=== PATIENT | female | born 1925 | race Hispanic/Latino ===

== ENCOUNTER 2016-03-28 10:36 | Emergency (ER) | payer MEDICARE ==
[2016-03-28] MEDS ORDERED: NACL 0.9% 1000 ML 1,000 ML IV ONE (11:20)
--- NOTE | 2016-03-28 12:01 | Cat Scan Report ---
CT scan of head without contrast: History: AMS. Findings: Ventricles are midline in location. Periventricular areas of low attenuation. Focal area of low attenuation right basal ganglia measuring 2 cm in diameter suggestive of chronic ischemia. No evidence of hemorrhage. Moderate volume loss. No extra-axial fluid collection. Normal brainstem and cerebellum. Normal sinuses are mastoid air cells. Impression: Small vessel ischemia. Cortical atrophy. Chronic right basal ganglia lacunar infarct.
--- NOTE | 2016-03-28 12:04 | Cat Scan Report ---
CT scan of cervical spine: History: Fall: AMS injury. Findings: No evidence of fracture of odontoid process, lateral mass, anterior and posterior arch of atlas and occipital condyles. Normal height of vertebral bodies. Decrease in height of intervertebral disc spaces. Sclerotic articular surfaces with peripheral osteophytes suggestive severe cervical spondylosis. Normal prevertebral soft tissue. Impression: Severe cervical spondylosis. No acute fracture.
[2016-03-28 12:40] LABS: Basophils % (Auto) 0.1 % (0.0-1.8); Eosinophils % (Auto) 0.4 % (0.0-4.3); Hematocrit 30.4 % (30.3-42.9); Hemoglobin 10.4 gm/dl (10.1-14.3); Mean Corpuscular HGB Conc 34 % (30-34); Mean Corpuscular Hemoglobin 28 pg (28-32); Mean Corpuscular Volume 82 fl (79-97); Platelet Count 183 K/mm3 (140-440); Red Blood Count 3.72 M/mm3 (3.65-5.03); Red Cell Distribution Width 16.3 % (13.2-15.2); White Blood Count 8.3 K/mm3 (4.5-11.0)
[2016-03-28 12:48] LABS: Albumin 3.6 g/dL (3.9-5); Bilirubin,Direct 0.3 mg/dL (0-0.2); Bilirubin,Indirect 0.5 mg/dL; Bilirubin,Total 0.8 mg/dL (0.1-1.2); Calcium 9.2 mg/dL (8.4-10.2); Magnesium 1.9 mg/dL (1.7-2.3); Potassium 3.3 mmol/L (3.6-5.0); Total Protein 7.2 g/dL (6.3-8.2)
[2016-03-28 12:49] LABS: INR 1.19 (0.87-1.13)
[2016-03-28 12:50] LABS: Partial Thromboplastin Time 31.4 Sec. (24.2-36.6)
--- NOTE | 2016-03-28 12:57 | XRay Report ---
Single view chest: History: Difficulty breathing. Findings: Cardiomegaly. Trachea is midline. Stable pacemaker. Mild COPD. No acute consolidation or pleural effusion. Impression: Cardiomegaly. No acute lung changes.
--- NOTE | 2016-03-28 12:59 | XRay Report ---
Left elbow 3 views: History: Bruising left upper arm. Findings: There is osteopenia. Arthritic changes at the elbow joint. Calcification adjacent to the olecranon process of ulna . No evidence of fracture. Impression: Findings as detailed above.
--- NOTE | 2016-03-28 13:00 | XRay Report ---
Left shoulder 2 views: History: Trauma. Findings: There is fracture noted neck of left humerus with impaction at the site of fracture. No dislocation. Impression: Fracture neck left humerus.
--- NOTE | 2016-03-28 13:13 | Admit Criteria Form ---
Admission Criteria Documentation: MUSCULOSKELETAL DISEASE GRG Clinical Indications for Admission to Inpatient Care (Place 'X' for any and all applicable criteria): Hospital admission is needed for appropriate care of the patient because of ANY ONE of the following: [X]I. Fracture, dislocation, or other musculoskeletal injury requiring inpatient care(medical) as indicated by ANY ONE of the following(4)(5)(6)(7) [ ]a) Vertebral fracture requiring observation for instability or neurologic compromise (8) [ ]b) Compartment syndrome (proven or cannot be ruled out during observation level of care) (9) [ ]c) Limb-threatening injury [ ]d) Major injury requiring inpatient stabilization such as traction initiation or external fixation before internal fixation or closure of complex or open fracture [X]e) Major injury requiring inpatient treatment after emergency or observation level care (as appropriate) [ ]f) Severe pain requiring acute inpatient management [ ]II. Newly diagnosed or suspected bone, joint, or orthopedic device infection (e.g., osteomyelitis, septic arthritis) needing ANY ONE of the following(1)(2)(3) [ ]a) IV antibiotics that cannot be initiated in other than inpatient setting (e.g., patient too unstable or home infusion not available) [ ]b) Device removal or replacement [ ]c) Bone or soft tissue debridement [ ]d) Joint drainage (drain placement or repetitive aspirations) [ ]III. Severe rheumatologic disease (e.g., systemic lupus erythematosus, rheumatoid arthritis) with complications or comorbidities (Also use Optimal Recovery Care Criteria or General Recovery Criteria as appropriate on the basis of predominant condition), including ANY ONE of the following(10 )(11)(12)(13) [ ]a) Severe infection (e.g., CIVILIAN TECHNICIAN infection, sepsis) (14) [ ]b) Respiratory complications, including ANY ONE of the following: [ ]i) Pleural effusion with respiratory compromise [ ]ii) Pulmonary hypertension with congestive failure [ ]iii) Respiratory failure [ ]iv) Pulmonary hemorrhage (15) [ ]c) Hematologic disease, including ANY ONE of the following: [ ]i) Coagulopathy with bleeding [ ]ii) Thrombosis with hypercoagulable state [ ]iii) Thrombotic thrombocytopenic purpura [ ]d) Cerebritis with seizures, psychosis, or other severe abnormalities [ ]e) Vertebral destruction with monitoring needed for cervical myelopathy& possible respiratory compromise [ ]f) Exacerbation that requires inpatient treatment (e.g., intravenous immunosuppression) (16) [ ]g) Acute renal failure [ ]IV. Severe vasculitis with complications or comorbidities (Also use Optimal Recovery Care Criteria or General Recovery Criteria as appropriate on the basis of predominant condition), including ANY ONE of the following(11)(12)(17)(18)(19)(20) [ ]a) CIVILIAN TECHNICIAN vasculitis with seizures, psychosis, or other severe abnormalities (22) [ ]b) Renal failure (16) [ ]c) Pulmonary hemorrhage (15) [ ]d) Cerebral infarction [ ]e) Gastrointestinal ischemia [ ]f) Gangrene or threatened amputation [ ]g) Exacerbation that requires inpatient treatment (e.g., intravenous immunosuppression) (19)(21) [ ]V. Severe myopathy as indicated by ANY ONE of the following (28)(29) [ ]a) New onset of airway compromise or inability to swallow [ ]b) Respiratory deterioration with observation needed for impending respiratory failure [ ]c) Exacerbation that requires inpatient treatment (e.g., intravenous immunosuppression) [ ]. Severe gout (crystal arthropathy) as indicated by ANY ONE of the following (23)(24) [ ]a) Severe pain requiring acute inpatient management [ ]b) Exacerbation that requires inpatient treatment (e.g., intravenous treatment) [ ]VII.Rhabdomyolysis and ANY ONE of the following (25)(26)(27) [ ]a) Acute renal failure [ ]b) Need for intravenous hydration after emergency or observation level care (as appropriate) [ ]c) Inability to maintain oral hydration [ ]d) Change in mental status [ ]e) Electrolyte abnormality that remains after emergency or observation level care (as appropriate) [ ]VIII Post amputation complication, as indicated by ANY ONE of the following [ ]a) Infection [ ]b) Dehiscence [ ]c) Myodesis failure [ ]IX. Severe pain requiring acute inpatient management as indicated by ALL of the following (30)(31)(32) [ ]a) Continuous or frequent (e.g., every 2 to 4 hrs) parenteral analgesics required [A] [ ]b) Rapid improvement expected from treatment or acute intervention ( e.g., surgery, anesthesia procedure[B] [ ]X. Musculoskeletal Disease and ALL of the following: [ ]a) Symptom or finding for which emergency and observation care have failed or are not considered appropriate (Use General Criteria: Observation Care as appropriate) [ ]b) Presence of ANY ONE of the following [ ]i) A General Admission Criteria [ ]ii) A Pediatric General Admission Criteria The original [facility] content created by [facility] has been revised. The portions of the content which have been revised are identified through the use of italic text or in bold, and [facility] has neither reviewed nor approved the modified material. All other unmodified content is copyright [facility]. Please see references footnoted in the original [facility] edition 2016
--- NOTE | 2016-03-28 16:00 | Emergency Department Report ---
ED General Adult HPI - General Chief complaint: Extremity Injury, Upper Stated complaint: DISLOCATED SHOULDER Time Seen by Provider: 03/28/16 11:19 Source: family Mode of arrival: Wheelchair Limitations: Altered Mental Status - History of Present Illness Initial comments: Patient [facility] emergency [facility] a [facility] fracture. Apparently an x-ray was obtained on the of this month. I presume that the report was received [facility] today. Family states that there was no known fall or trauma. 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 She was given Xanax and Percocet today for anxiety and pain. According to the family she is usually more awake. However they attributed her current lethargy to the medications that she has received as she has had similar reaction. In any case as I understand that they sent her from the jail for evaluation of this humeral fracture. -: days(s) Location: left, upper extremity Severity scale (0 -10): 0 Quality: other (unable to obtain) Consistency: constant Improves with: none Worsens with: none (able to obtain) Associated Symptoms: denies other symptoms Treatments Prior to Arrival: none - Related Data Home Medications Medication Instructions Recorded Confirmed Last Taken Hydrochlorothiazide 12.5 mg PO DAILY 09/29/13 03/02/14 09/27/13 10:00 Metoprolol [Lopressor TAB] 50 mg PO DAILY 09/29/13 03/02/14 09/28/13 10:00 Potassium Chloride [Klor-Con 8] 10 meq PO DAILY 09/29/13 03/02/14 09/28/13 10:00 8 ALPRAZolam [Xanax TAB] 0.5 mg PO QHS 03/02/14 03/02/14 Unknown Calcium Carbonate [Calcium] 600 mg PO QDAY 03/02/14 03/02/14 Unknown QUEtiapine [SEROquel] 25 mg PO QDAY 03/02/14 03/02/14 Unknown Previous Rx's Medication Instructions Recorded Last Taken Type oxyCODONE /ACETAMINOPHEN [Percocet 1 tab PO Q6H PRN #30 tablet 10/05/13 Unknown Rx 5/325 mg] Aspirin EC [Aspirin Enteric Coated 81 mg PO QDAY #30 tablet 03/04/14 Unknown Rx TAB] Allergies Allergy/AdvReac Type Severity Reaction Status Date / Time phenytoin sodium Allergy Angioedema Verified 09/29/13 11:31 [From Dilantin] phenytoin sodium extended Allergy Angioedema Verified 09/29/13 11:31 [From Dilantin] ED Review of Systems ROS: Stated complaint: DISLOCATED SHOULDER Other details as noted in HPI Comment: Unobtainable due to pts medical conditions ED Past Medical Hx - Past Medical History Previous Medical History?: Yes Hx Hypertension: Yes Hx Heart Attack/AMI: Yes Hx Arthritis: Yes Hx Dementia: Yes Additional medical history: DNR. heart disease. hyperlipidemia. anxiety. dysphagia - Surgical History Past Surgical History?: Yes Hx Pacemaker: Yes Hx Appendectomy: Yes Additional Surgical History: Craniotomy for brain tumor - Social History Smoking Status: Never Smoker Substance Use Type: None - Medications Home Medications: Home Medications Medication Instructions Recorded Confirmed Last Taken Type Hydrochlorothiazide 12.5 mg PO DAILY 09/29/13 03/02/14 09/27/13 10:00 History Metoprolol [Lopressor TAB] 50 mg PO DAILY 09/29/13 03/02/14 09/28/13 10:00 History Potassium Chloride [Klor-Con 8] 10 meq PO DAILY 09/29/13 03/02/14 09/28/13 10: 00 History 8 oxyCODONE /ACETAMINOPHEN [Percocet 1 tab PO Q6H PRN #30 tablet 10/05/13 Unknown Rx 5/325 mg] ALPRAZolam [Xanax TAB] 0.5 mg PO QHS 03/02/14 03/02/14 Unknown History Calcium Carbonate [Calcium] 600 mg PO QDAY 03/02/14 03/02/14 Unknown History QUEtiapine [SEROquel] 25 mg PO QDAY 03/02/14 03/02/14 Unknown History Aspirin EC [Aspirin Enteric Coated 81 mg PO QDAY #30 tablet 03/04/14 Unknown Rx TAB] ED Physical Exam - General Limitations: Altered Mental Status General appearance: alert, in no apparent distress - Head Head exam: Present: atraumatic, normocephalic - Eye Eye exam: Present: normal appearance - ENT ENT exam: Present: mucous membranes moist - Neck Neck exam: Present: normal inspection - Respiratory Respiratory exam: Present: normal lung sounds bilaterally. Absent: respiratory distress - Cardiovascular Cardiovascular Exam: Present: regular rate, normal rhythm. Absent: systolic murmur, diastolic murmur, rubs, gallop - GI/Abdominal GI/Abdominal exam: Present: soft, normal bowel sounds. Absent: distended, tenderness, guarding, rebound - Extremities Exam Extremities exam: Present: other (ecchymosis and deformity left shoulder closed) - Back Exam Back exam: Present: normal inspection - Neurological Exam Neurological exam: Present: altered (lethargic), other - Psychiatric Psychiatric exam: Present: normal affect, normal mood - Skin Skin exam: Present: warm, dry, intact, normal color. Absent: rash ED Course Vital Signs 03/28/16 03/28/16 03/28/16 10:41 11:29 16:30 Temperature 98.0 F Pulse Rate 91 H 96 H 94 H Respiratory 14 12 16 Rate Blood Pressure 110/69 Blood Pressure 110/75 103/74 [Right] O2 Sat by Pulse 90 98 97 Oximetry - Reevaluation(s) Reevaluation #1: The patient was given IV fluid. She'll be placed in a sling. Her fracture is more displaced than the previous x-ray indicates. However this is a nonsurgical case. Orthopedic follow-up is recommended. 03/28/16 17:06 ED Medical Decision Making - Lab Data Result diagrams: 03/28/16 12:12 03/28/16 12:12 Laboratory Results - last 24 hr 03/28/16 03/28/16 03/28/16 12:12 12:12 12:12 WBC 8.3 RBC 3.72 Hgb 10.4 Hct 30.4 MCV 82 MCH 28 MCHC 34 RDW 16.3 H Plt Count 183 Lymph % (Auto) 13.9 [place] % (Auto) 12.9 H Eos % (Auto) 0.4 Baso % (Auto) 0.1 Lymph # 1.2 [place] # 1.1 H Eos # 0.0 Baso # 0.0 Seg Neutrophils % 72.7 H Seg Neutrophils # 6.1 PT 15.0 H INR 1.19 H APTT 31.4 Sodium 138 Potassium 3.3 L Chloride 99.0 Carbon Dioxide 24 Anion Gap 18 BUN 33 H Creatinine 1.0 Estimated GFR 52 BUN/Creatinine Ratio 33.00 Glucose 107 H Calcium 9.2 Magnesium 1.9 Total Bilirubin 0.8 Direct Bilirubin 0.3 H Indirect Bilirubin 0.5 AST 24 ALT 22 Alkaline Phosphatase 128 Ammonia Troponin T 0.012 Total Protein 7.2 Albumin 3.6 L Albumin/Globulin Ratio 1.0 03/28/16 12:12 WBC RBC Hgb Hct MCV MCH MCHC RDW Plt Count Lymph % (Auto) [place] % (Auto) Eos % (Auto) Baso % (Auto) Lymph # [place] # Eos # Baso # Seg Neutrophils % Seg Neutrophils # PT INR APTT Sodium Potassium Chloride Carbon Dioxide Anion Gap BUN Creatinine Estimated GFR BUN/Creatinine Ratio Glucose Calcium Magnesium Total Bilirubin Direct Bilirubin Indirect Bilirubin AST ALT Alkaline Phosphatase Ammonia 20.0 L Troponin T Total Protein Albumin Albumin/Globulin Ratio Critical care attestation.: If time is entered above; I have spent that time in minutes in the direct care of this critically ill patient, excluding procedure time. ED Disposition Clinical Impression: Prerenal azotemia, Hypokalemia Fracture of neck of left humerus Qualifiers: Encounter type: initial encounter Fracture type: closed Qualified Code(s): S42.212A - Unspecified displaced fracture of surgical neck of left humerus, initial encounter for closed fracture Disposition: DISCHARGED TO HOME OR SELFCARE Is pt being admited?: No Does the pt Need Aspirin: No Condition: Stable Instructions: Dehydration (ED), Hypokalemia (ED), Arm Fracture in Adults (ED) Additional Instructions: Arm sling is the only treatment for this fracture at this point. Continue pain management. I have referred due to an orthopedist. The patient's potassium was 3.3 so it was a bit low. She was a bit somnolent here. However her CT examination of her head showed nothing acute. She also received a CT of her cervical spine which was okay. Her fracture is more displaced now than it was on the . Remain in sling. Follow-up with orthopedics. Increase fluids. If the patient is not taking apple fluids and the patient's family desires a G- tube that might be an option. Referrals: PRIMARY CARE, [Primary Care Provider] - 3-5 Days DENNIS LOPEZ MD [Staff Physician] - 2-3 Days Time of Disposition: 17:15
[2016-03-28 16:48] LABS: Bilirubin,Urine NEG (Negative); Blood,Urine NEG (Negative); Ketones,Urine NEG (Negative); Leukocyte Esterase,Urine NEG (Negative); Mucus,Urine FEW /HPF; Nitrite,Urine NEG (Negative); Protein,Urine <15 mg/dL mg/dL (Negative); RBC,Urine < 1.0 /HPF (0.0-6.0); WBC,Urine < 1.0 /HPF (0.0-6.0)
[2016-03-28] MEDS ORDERED: K-DUR PO ONE ×2 (17:17→17:23)
[2016-03-28 19:34] VITALS: BP 143/90
== END 2016-03-28 19:33 | disposition home or self-care (01) ==
LOC: ED 10:36
DX: S42.212A Unspecified displaced fracture of surgical neck of left humerus, initial encounter for closed fracture (principal); E87.6 Hypokalemia; R79.89 Other specified abnormal findings of blood chemistry; I10 Essential (primary) hypertension; I25.2 Old myocardial infarction; M19.90 Unspecified osteoarthritis, unspecified site; F41.9 Anxiety disorder, unspecified; Z95.0 Presence of cardiac pacemaker; Z79.82 Long term (current) use of aspirin; Z88.8 Allergy status to other drugs, medicaments and biological substances; X58.XXXA Exposure to other specified factors, initial encounter; Y93.89 Activity, other specified; Y99.9 Unspecified external cause status; Y92.89 Other specified places as the place of occurrence of the external cause
CPT/HCPCS: 36415; 51701; 70450; 71010; 72125; 73030; 73070; 80048; 80074; 81001; 82140; 83735; 84484; 85025; 85610; 85730; 93005; 93010; 96360; 96361; 99285; J7030

== ENCOUNTER 2016-06-07 04:14 | Inpatient (IN) | payer MEDICARE ==
[2016-06-07] MEDS ORDERED: NACL 0.9% 1000 ML 1,000 ML IV ONE (05:26)
[2016-06-07 06:08] LABS: Basophils % (Auto) 0.1 % (0.0-1.8); Eosinophils % (Auto) 1.5 % (0.0-4.3); Hematocrit 37.3 % (30.3-42.9); Hemoglobin 11.9 gm/dl (10.1-14.3); Mean Corpuscular HGB Conc 32 % (30-34); Mean Corpuscular Volume 79 fl (79-97); Platelet Count 224 K/mm3 (140-440); Red Blood Count 4.73 M/mm3 (3.65-5.03); Red Cell Distribution Width 16.8 % (13.2-15.2)
[2016-06-07 06:10] LABS: Mean Corpuscular Hemoglobin 25 pg (28-32)
[2016-06-07 06:23] LABS: Bilirubin,Total 0.6 mg/dL (0.1-1.2); Calcium 10.2 mg/dL (8.4-10.2); Chloride 100.2 mmol/L (98-107); Potassium 3.6 mmol/L (3.6-5.0)
[2016-06-07 06:26] LABS: INR 1.07 (0.87-1.13); Partial Thromboplastin Time 28.4 Sec. (24.2-36.6)
[2016-06-07] MEDS ORDERED: PROTONIX IV ONE (06:58)
--- NOTE | 2016-06-07 06:59 | Emergency Department Report ---
ED GI Bleed HPI - General Chief complaint: GI Bleed Stated complaint: VOMITING Time Seen by Provider: 06/07/16 06:38 Source: family, EMS (ems notes not available at time of chart dictation), old records reviewed Mode of arrival: Stretcher Limitations: Altered Mental Status, Physical Limitation - History of Present Illness Initial comments: This is an 89-year-old female. She is previously unknown to me. The patient presents to the ER from local longterm, her primary care physician is Dr. Gerald Girard. Patient is demented, history of DO NOT RESUSCITATE, DO NOT INTUBATE. Past medical history includes advanced dementia. History also includes dysphasia, hypertension, myocardial infarction, high cholesterol. Her career development coordinator is Dr. Joshua Adan History is obtained by speaking to her 2 daughters Yennifer Ly; [phone] Ava Jones; [phone] The patient is brought to the hospital by EMS for vomiting of coffee-ground emesis. The patient is alert and oriented 1, and denies complaints. Family thinks that she is up-to-date with vaccinations. Family reports that the patient had a mechanical fall over the weekend, and has right periorbital ecchymosis. They further report that the patient received x-rays at the facility which were negative. Family indicates that their goals of care are for comfort, patient is DO NOT RESUSCITATE, DO NOT INTUBATE. The family is amenable to hospital admission, IV fluids, packed red blood cells. They are ambivalent about upper endoscopy at this time. MD complaint: coffee ground emesis -: Gradual Quality: painless Improves with: other (patient is essentially nonverbal, cannot describe exacerbating factors or relieving factors) Worsens with: other (as per history of present illness) Context: other (as per hpi) Associated Symptoms: other (patient nonverbal, history obtained entirely from speaking to family. Patient groans when examined.) - Related Data Home Medications Medication Instructions Recorded Confirmed Last Taken Hydrochlorothiazide 12.5 mg PO DAILY 09/29/13 06/07/16 06/06/16 Metoprolol [Lopressor TAB] 50 mg PO DAILY 09/29/13 06/07/16 06/06/16 Potassium Chloride [Klor-Con 8] 10 meq PO DAILY 09/29/13 06/07/16 06/06/16 ALPRAZolam [Xanax TAB] 0.5 mg PO QHS 03/02/14 06/07/16 06/06/16 Calcium Carbonate [Calcium] 600 mg PO QDAY 03/02/14 06/07/16 06/06/16 QUEtiapine [SEROquel] 25 mg PO QDAY 03/02/14 06/07/16 06/06/16 Previous Rx's Medication Instructions Recorded Last Taken Type oxyCODONE /ACETAMINOPHEN [Percocet 1 tab PO Q6H PRN #30 tablet 10/05/13 Unknown Rx 5/325 mg] Aspirin EC [Aspirin Enteric Coated 81 mg PO QDAY #30 tablet 03/04/14 06/06/16 Rx TAB] Allergies Allergy/AdvReac Type Severity Reaction Status Date / Time phenytoin sodium Allergy Angioedema Verified 09/29/13 11:31 [From Dilantin] phenytoin sodium extended Allergy Angioedema Verified 09/29/13 11:31 [From Dilantin] ED Review of Systems ROS: Stated complaint: VOMITING Other details as noted in HPI Comment: Unobtainable due to pts medical conditions Gastrointestinal: hematemesis ED Past Medical Hx - Past Medical History Hx Hypertension: Yes Hx Heart Attack/AMI: Yes Hx Arthritis: Yes Hx Dementia: Yes Additional medical history: DNR. heart disease. hyperlipidemia. anxiety. dysphagia - Surgical History Hx Pacemaker: Yes Hx Appendectomy: Yes Additional Surgical History: Craniotomy for brain tumor - Social History Smoking Status: Never Smoker - Medications Home Medications: Home Medications Medication Instructions Recorded Confirmed Last Taken Type Hydrochlorothiazide 12.5 mg PO DAILY 09/29/13 06/07/16 06/06/16 History Metoprolol [Lopressor TAB] 50 mg PO DAILY 09/29/13 06/07/16 06/06/16 History Potassium Chloride [Klor-Con 8] 10 meq PO DAILY 09/29/13 06/07/16 06/06/16 History oxyCODONE /ACETAMINOPHEN [Percocet 1 tab PO Q6H PRN #30 tablet 10/05/13 Unknown Rx 5/325 mg] ALPRAZolam [Xanax TAB] 0.5 mg PO QHS 03/02/14 06/07/16 06/06/16 History Calcium Carbonate [Calcium] 600 mg PO QDAY 03/02/14 06/07/16 06/06/16 History QUEtiapine [SEROquel] 25 mg PO QDAY 03/02/14 06/07/16 06/06/16 History Aspirin EC [Aspirin Enteric Coated 81 mg PO QDAY #30 tablet 03/04/14 06/07/16 Rx TAB] ED Physical Exam - General Limitations: Altered Mental Status, Physical Limitation General appearance: in no apparent distress - Head Head exam: Present: normocephalic, other (there is right periorbital ecchymosis) - Eye Eye exam: Present: other (there is right periorbital ecchymosis. The patient keeps her right eye closed, and will not open it. family does not want me to open up the eye) - ENT ENT exam: Present: normal exam, normal external ear exam - Neck Neck exam: Present: normal inspection. Absent: tenderness, meningismus - Respiratory Respiratory exam: Present: normal lung sounds bilaterally. Absent: respiratory distress, wheezes, rales, rhonchi, stridor, chest wall tenderness, accessory muscle use, decreased breath sounds - Cardiovascular Cardiovascular Exam: Present: regular rate, normal rhythm, normal heart sounds. Absent: bradycardia, tachycardia, irregular rhythm, systolic murmur, diastolic murmur, rubs, gallop - GI/Abdominal GI/Abdominal exam: Present: soft, normal bowel sounds. Absent: distended, tenderness, guarding, rebound, rigid, pulsatile mass - Rectal Rectal exam: Present: normal inspection, heme (-) stool, other (escorted by ART Soliman) - Extremities Exam Extremities exam: Present: normal inspection, full ROM, normal capillary refill. Absent: pedal edema, joint swelling, calf tenderness - Back Exam Back exam: Present: normal inspection. Absent: tenderness, CVA tenderness (R) - Neurological Exam Neurological exam: Present: altered (as per family, patient had normal mental status.), other (she moves 4 extremities. She is demented. She groans when examined.) - Skin Skin exam: Present: ecchymosis. Absent: rash ED Course Vital Signs 06/07/16 06/07/16 06/07/16 04:32 05:01 05:31 Temperature Pulse Rate 92 H 96 H 92 H Respiratory 12 19 Rate Blood Pressure 155/86 155/86 Blood Pressure [Left] O2 Sat by Pulse 62 L 96 Oximetry 06/07/16 06/07/16 06/07/16 06:01 06:31 06:40 Temperature Pulse Rate 93 H 97 H Respiratory 17 17 18 Rate Blood Pressure 155/86 155/86 Blood Pressure [Left] O2 Sat by Pulse 97 96 98 Oximetry 06/07/16 06/07/16 06/07/16 07:01 07:20 07:31 Temperature 98.8 F Pulse Rate 102 H 91 H Respiratory 19 14 Rate Blood Pressure 155/86 155/86 Blood Pressure [Left] O2 Sat by Pulse 96 90 Oximetry 06/07/16 06/07/16 06/07/16 08:11 08:19 08:31 Temperature 98.8 F Pulse Rate 91 H Respiratory 13 Rate Blood Pressure Blood Pressure [Left] O2 Sat by Pulse 94 98 Oximetry 06/07/16 06/07/16 06/07/16 09:01 09:31 10:01 Temperature Pulse Rate 87 97 H 95 H Respiratory 19 13 17 Rate Blood Pressure Blood Pressure [Left] O2 Sat by Pulse 98 93 81 L Oximetry 06/07/16 06/07/16 06/07/16 10:31 11:06 11:16 Temperature Pulse Rate 88 82 88 Respiratory 13 20 Rate Blood Pressure 150/80 Blood Pressure 150/82 [Left] O2 Sat by Pulse 98 Oximetry - Reevaluation(s) Reevaluation #1: 06/07/16 08:06 Differential diagnosis: Pneumonia, urinary tract infection, upper GI bleed, intracranial injury, facial contusion/ecchymosis Assessment and plan: 89-year-old female who is demented, unable to offer collateral history, DO NOT RESUSCITATE, DO NOT INTUBATE with undifferentiated coffee-ground emesis. She is afebrile with reassuring vital signs. She is guaiac negative. Hemoglobin and hematocrit appropriate, do not require packed red blood cell transfusion. Elevated blood urea nitrogen suggestive of upper GI bleed. IV fluids and Protonix ordered. Gastroenterology page. Noncontrast CAT scan of the brain is ordered to exclude intracranial injury. X-ray chest interpretation is appreciated, given patient's advanced age, and stated goals of care from the family, I will defer to the inpatient team to further evaluate this. Case is discussed with the Hospital physician, Dr. Girard, who accepts the patient to his service. Family is amenable to Protonix, IV fluids and packed red blood cell transfusion. - Consultations Consultation #1: 06/07/16 08:49 Case is discussed with gastroenterology, Dr. Teran, his group will see the patient as a consult. ED Medical Decision Making - Lab Data Result diagrams: 06/07/16 05:30 06/07/16 05:30 Vital Signs 06/07/16 06/07/16 06/07/16 04:32 05:01 06:40 Pulse Rate 92 H 96 H Respiratory 12 18 Rate Blood Pressure 155/86 O2 Sat by Pulse 62 L 98 Oximetry Lab Results 06/07/16 06/07/16 06/07/16 Range/Units 05:30 05:30 05:30 WBC 8.0 (4.5-11.0) K/mm3 RBC 4.73 (3.65-5.03) M/mm3 Hgb 11.9 (10.1-14.3) gm/dl Hct 37.3 (30.3-42.9) % MCV 79 (79-97) fl MCH 25 L (28-32) pg MCHC 32 (30-34) % RDW 16.8 H (13.2-15.2) % Plt Count 224 (140-440) K/mm3 Lymph % (Auto) 16.8 (13.4-35.0) % [place] % (Auto) 7.3 (0.0-7.3) % Eos % (Auto) 1.5 (0.0-4.3) % Baso % (Auto) 0.1 (0.0-1.8) % Lymph # 1.3 (1.2-5.4) K/mm3 [place] # 0.6 (0.0-0.8) K/mm3 Eos # 0.1 (0.0-0.4) K/mm3 Baso # 0.0 (0.0-0.1) K/mm3 Seg Neutrophils % 74.3 H (40.0-70.0) % Seg Neutrophils # 6.0 (1.8-7.7) K/mm3 PT 13.8 (12.2-14.9) Sec. INR 1.07 (0.87-1.13) APTT 28.4 (24.2-36.6) Sec. Sodium 145 (137-145) mmol/L Potassium 3.6 (3.6-5.0) mmol/L Chloride 100.2 (98-107) mmol/L Carbon Dioxide 28 (22-30) mmol/L Anion Gap 20 mmol/L BUN 38 H (7-17) mg/dL Creatinine 1.0 (0.7-1.2) mg/dL Estimated GFR 52 ml/min BUN/Creatinine Ratio 38.00 % Glucose 120 H (65-100) mg/dL Calcium 10.2 (8.4-10.2) mg/dL Total Bilirubin 0.6 (0.1-1.2) mg/dL AST 28 (5-40) units/L ALT 20 (7-56) units/L Alkaline Phosphatase 180 H (35-129) units/L Total Protein 8.0 (6.3-8.2) g/dL Albumin 4.0 (3.9-5) g/dL Albumin/Globulin Ratio 1.0 % Lipase 23 (13-60) units/L Blood Type Antibody Screen ALEKSEY Antibody Screen 06/07/16 Range/Units 05:30 WBC (4.5-11.0) K/mm3 RBC (3.65-5.03) M/mm3 Hgb (10.1-14.3) gm/dl Hct (30.3-42.9) % MCV (79-97) fl MCH (28-32) pg MCHC (30-34) % RDW (13.2-15.2) % Plt Count (140-440) K/mm3 Lymph % (Auto) (13.4-35.0) % [place] % (Auto) (0.0-7.3) % Eos % (Auto) (0.0-4.3) % Baso % (Auto) (0.0-1.8) % Lymph # (1.2-5.4) K/mm3 [place] # (0.0-0.8) K/mm3 Eos # (0.0-0.4) K/mm3 Baso # (0.0-0.1) K/mm3 Seg Neutrophils % (40.0-70.0) % Seg Neutrophils # (1.8-7.7) K/mm3 PT (12.2-14.9) Sec. INR (0.87-1.13) APTT (24.2-36.6) Sec. Sodium (137-145) mmol/L Potassium (3.6-5.0) mmol/L Chloride (98-107) mmol/L Carbon Dioxide (22-30) mmol/L Anion Gap mmol/L BUN (7-17) mg/dL Creatinine (0.7-1.2) mg/dL Estimated GFR ml/min BUN/Creatinine Ratio % Glucose (65-100) mg/dL Calcium (8.4-10.2) mg/dL Total Bilirubin (0.1-1.2) mg/dL AST (5-40) units/L ALT (7-56) units/L Alkaline Phosphatase (35-129) units/L Total Protein (6.3-8.2) g/dL Albumin (3.9-5) g/dL Albumin/Globulin Ratio % Lipase (13-60) units/L Blood Type O NEGATIVE Antibody Screen TNR ALEKSEY Antibody Screen Negative - EKG Data -: EKG Interpreted by Dc - EKG Data 06/07/16 08:08 Sinus tachycardia, 101 bpm, premature ventricular contraction, left ventricular hypertrophy, QTC 479 ms, T wave inversion V2, V3, V4, V5 and V6. When compared to prior EKG from March 2016, anteroseptal T-wave inversions in V2 and V3 appear to be new. - Radiology Data Radiology results: report reviewed, image reviewed X-ray of the chest is rotated, elevated hemidiaphragm, left sided cardiac device , limited, possible hiatal hernia. Critical care attestation.: If time is entered above; I have spent that time in minutes in the direct care of this critically ill patient, excluding procedure time. ED Disposition Clinical Impression: Coffee ground emesis Disposition: OP ADMITTED IP TO THIS HOSP Is pt being admited?: Yes Condition: Fair
--- NOTE | 2016-06-07 07:04 | Admit Criteria Form ---
Admission Criteria Documentation: GASTROINTESTINAL BLEEDING, UPPER Clinical Indications for Admission to Inpatient Care ( Place 'X' for any and all applicable criteria): Admission is indicated for ANY ONE of the following(1)(2)(3)(4)(5)(6): [ ]I. Active bleeding (eg, fresh voluminous blood in emesis or nasogastric aspirate) [ ]II. Associated conditions requiring hospitalization (eg, perforation, obstruction from ulcer) [X]III. Inpatient admission required rather than observation care (Also use Gastrointestinal Bleeding, Upper: Observation Care as appropriate) because of ANY ONE of the following: [ ]a) Hemodynamic instability that is severe or persistent [ ]b) Anemia requiring inpatient admission as indicated by ALL of the following: [ ]1) Presence of significant clinical finding indicated by ANY ONE of the following: [ ]A. Tachycardia for age [ ]B. Orthostatic vital sign changes [ ]C. Cognitive impairment [ ]D. Heart failure [ ]E. Chest pain [ ]F. Exertional dyspnea [ ]G. Other findings suggesting inadequate perfusion (eg, peripheral or myocardial ischemia, end organ dysfunction) [ ]2) Initial (eg, emergency department, observation care) treatment with transfusion or volume replacement is judged inappropriate (due to severity of the finding) or has been ineffective [ ]c) Severe pain requiring acute inpatient management [ ]d) High-risk low platelet count [ ]e) IV fluid to replace significant ongoing losses (greater than 3 L/m2 per day) [ ]f) Immediate inpatient surgery [X]g) Other condition, treatment or monitoring requiring inpatient admission [ ]IV. Severe liver disease (eg, cirrhosis) [ ]V. Significant active comorbid disease [ ]. Anticoagulation therapy [ ]VII. High-risk endoscopic features (arterial bleeding, adherent clot, nonbleeding visible vessel, varices, flat red spots, ulcer size greater than 2 cm, or portal hypertensive gastropathy) [ ]VIII. Previous aortic graft placement or known aortic aneurysm [ ]IX. Coagulopathy [ ]X. Syncope Extended stay beyond goal length of stay may be needed for(1)(2): [ ]a) Emergency surgery [ ]b) Varices [ ]c) Coagulation abnormalities [ ]d) Recurrent, obscure, or persistent bleeding or continued Hemodynamic instability [ ]e) Associated conditions requiring surgery (eg, perforated gastric ulcer, gastric outlet obstruction) [ ]f) Active comorbidities (eg, renal insufficiency, heart failure, pre- existing liver disease) The original [facility] [employer] content created by [facility] has been revised. The portions of the content which have been revised are identified through the use of italic text or in bold, and [facility] has neither reviewed nor approved the modified material. All other unmodified content is copyright [facility] [employer]. Please see references footnoted in the original [facility] [employer] edition 2016 Admission Criteria Met: Yes
--- NOTE | 2016-06-07 07:50 | XRay Report ---
AP CHEST History: Nausea and vomiting, GI bleeding. Findings: Limited exam. The cardiac silhouette and left hemidiaphragm appear abnormal which is a new finding since 03/28/16. This may represent a large hiatal hernia behind the heart or possibly an elevated left hemidiaphragm. The left upper lung and right lung are generally clear. Heart size is at the upper limits of normal. Pacemaker device is unchanged. The bony structures are severely demineralized with chronic deformities of both humeral heads. Impression: Limited exam but abnormal AP chest when compared to 03/28/16. Large hiatal hernia? Elevated left hemidiaphragm? Consider further imaging with CT or 2 views of the chest
[2016-06-07 08:50] LABS: Bacteria,Urine 2+ /HPF (Negative); Bilirubin,Urine NEG (Negative); Blood,Urine NEG (Negative); Ketones,Urine NEG (Negative); Leukocyte Esterase,Urine MOD (Negative); Nitrite,Urine NEG (Negative); Protein,Urine <15 mg/dL mg/dL (Negative)
--- NOTE | 2016-06-07 08:54 | Cat Scan Report ---
Cranial CT without contrast. History: Head trauma with pain. Findings: Comparison is made to the previous study on March 28, 2016. There is no evidence of acute hemorrhage or infarct. Multiple senescent/chronic changes are stable since the previous study. No masses or extra-axial collections are seen. A metallic foreign body is again noted in the left middle cranial fossa. Postoperative changes in the left calvarium are noted. No new calvarial abnormalities are seen. Impression: No acute findings or interval changes since March 28, 2016.
[2016-06-07] MEDS ORDERED: ROCEPHIN/NS 1 GM/50 ML 1 GM/50 ML BAG IV ONE (09:06)
--- NOTE | 2016-06-07 10:09 | History and Physical Report ---
History of Present Illness Date of examination: 06/07/16 History of present illness: Patient is an 89-year-old female presents to the ER from local alf, her primary care physician is myself. Patient is demented, history of DO NOT RESUSCITATE, DO NOT INTUBATE. Patient's past medical history includes advanced dementia, dysphasia, hypertension, myocardial infarction, high cholesterol. History is obtained by speaking to her 2 daughters. The patient is brought to the hospital by EMS for vomiting of coffee-ground emesis. The patient is alert and oriented 1, and denies complaints. Family thinks that she is up-to-date with vaccinations. Family reports that the patient had a mechanical fall over the weekend, and has right periorbital ecchymosis. They further report that the patient received x-rays at the facility which were negative. Family indicates that their goals of care are for comfort, patient is DO NOT RESUSCITATE, DO NOT INTUBATE. The family is amenable to hospital admission, IV fluids, packed red blood cells. They are ambivalent about upper endoscopy at this time. Past History Past Medical History: hypertension, other (anxiety) Medications and Allergies Allergies Allergy/AdvReac Type Severity Reaction Status Date / Time phenytoin sodium Allergy Angioedema Verified 09/29/13 11:31 [From Dilantin] phenytoin sodium extended Allergy Angioedema Verified 09/29/13 11:31 [From Dilantin] Home Medications Medication Instructions Recorded Confirmed Last Taken Type Hydrochlorothiazide 12.5 mg PO DAILY 09/29/13 06/07/16 06/06/16 History Metoprolol [Lopressor TAB] 50 mg PO DAILY 09/29/13 06/07/16 06/06/16 History Potassium Chloride [Klor-Con 8] 10 meq PO DAILY 09/29/13 06/07/16 06/06/16 History oxyCODONE /ACETAMINOPHEN [Percocet 1 tab PO Q6H PRN #30 tablet 10/05/13 Unknown Rx 5/325 mg] ALPRAZolam [Xanax TAB] 0.5 mg PO QHS 03/02/14 06/07/16 06/06/16 History Calcium Carbonate [Calcium] 600 mg PO QDAY 03/02/14 06/07/16 06/06/16 History QUEtiapine [SEROquel] 25 mg PO QDAY 03/02/14 06/07/16 06/06/16 History Aspirin EC [Aspirin Enteric Coated 81 mg PO QDAY #30 tablet 03/04/14 06/07/16 Rx TAB] Review of Systems Gastrointestinal: nausea, vomiting, coffee ground emesis Exam - Constitutional Vitals: Temp Pulse Resp BP Pulse Ox 98.8 F 97 H 13 155/86 93 06/07/16 08:11 06/07/16 09:31 06/07/16 09:31 06/07/16 07:31 06/07/16 09:31 General appearance: Present: no acute distress - EENT Eyes: Present: PERRL, EOM intact ENT: hearing intact, clear oral mucosa - Neck Neck: Present: supple, normal ROM - Respiratory Respiratory effort: normal Respiratory: bilateral: CTA - Cardiovascular Rhythm: regular Heart Sounds: Present: S1 & S2 - Extremities Extremities: no ischemia, No edema - Abdominal General gastrointestinal: Present: soft, non-tender, non-distended, normal bowel sounds - Psychiatric Psychiatric: appropriate mood/affect, intact judgment & insight - Neurologic Neurologic: CNII-XII intact, moves all extremities Results - Labs CBC & Chem 7: 06/07/16 05:30 06/07/16 05:30 Labs: Laboratory Last Values WBC 8.0 K/mm3 (4.5-11.0) 06/07/16 05:30 RBC 4.73 M/mm3 (3.65-5.03) 06/07/16 05:30 Hgb 11.9 gm/dl (10.1-14.3) 06/07/16 05:30 Hct 37.3 % (30.3-42.9) 06/07/16 05:30 MCV 79 fl (79-97) 06/07/16 05:30 MCH 25 pg (28-32) L 06/07/16 05:30 MCHC 32 % (30-34) 06/07/16 05:30 RDW 16.8 % (13.2-15.2) H 06/07/16 05:30 Plt Count 224 K/mm3 (140-440) 06/07/16 05:30 Lymph % (Auto) 16.8 % (13.4-35.0) 06/07/16 05:30 [place] % (Auto) 7.3 % (0.0-7.3) 06/07/16 05:30 Eos % (Auto) 1.5 % (0.0-4.3) 06/07/16 05:30 Baso % (Auto) 0.1 % (0.0-1.8) 06/07/16 05:30 Lymph # 1.3 K/mm3 (1.2-5.4) 06/07/16 05:30 [place] # 0.6 K/mm3 (0.0-0.8) 06/07/16 05:30 Eos # 0.1 K/mm3 (0.0-0.4) 06/07/16 05:30 Baso # 0.0 K/mm3 (0.0-0.1) 06/07/16 05:30 Seg Neutrophils % 74.3 % (40.0-70.0) H 06/07/16 05:30 Seg Neutrophils # 6.0 K/mm3 (1.8-7.7) 06/07/16 05:30 PT 13.8 Sec. (12.2-14.9) 06/07/16 05:30 INR 1.07 (0.87-1.13) 06/07/16 05:30 APTT 28.4 Sec. (24.2-36.6) 06/07/16 05:30 Sodium 145 mmol/L (137-145) 06/07/16 05:30 Potassium 3.6 mmol/L (3.6-5.0) 06/07/16 05:30 Chloride 100.2 mmol/L (98-107) 06/07/16 05:30 Carbon Dioxide 28 mmol/L (22-30) 06/07/16 05:30 Anion Gap 20 mmol/L 06/07/16 05:30 BUN 38 mg/dL (7-17) H 06/07/16 05:30 Creatinine 1.0 mg/dL (0.7-1.2) 06/07/16 05:30 Estimated GFR 52 ml/min 06/07/16 05:30 BUN/Creatinine Ratio 38.00 % 06/07/16 05:30 Glucose 120 mg/dL (65-100) H 06/07/16 05:30 Calcium 10.2 mg/dL (8.4-10.2) 06/07/16 05:30 Total Bilirubin 0.6 mg/dL (0.1-1.2) 06/07/16 05:30 AST 28 units/L (5-40) 06/07/16 05:30 ALT 20 units/L (7-56) 06/07/16 05:30 Alkaline Phosphatase 180 units/L (35-129) H 06/07/16 05:30 Total Protein 8.0 g/dL (6.3-8.2) 06/07/16 05:30 Albumin 4.0 g/dL (3.9-5) 06/07/16 05:30 Albumin/Globulin Ratio 1.0 % 06/07/16 05:30 Lipase 23 units/L (13-60) 06/07/16 05:30 Urine Color Yellow (Yellow) 06/07/16 07:39 Urine Turbidity Clear (Clear) 06/07/16 07:39 Urine pH 7.0 (5.0-7.0) 06/07/16 07:39 Ur Specific [place] 1.015 (1.003-1.030) 06/07/16 07:39 Urine Protein <15 mg/dl mg/dL (Negative) 06/07/16 07:39 Urine Glucose (UA) Neg mg/dL (Negative) 06/07/16 07:39 Urine Ketones Neg mg/dL (Negative) 06/07/16 07:39 Urine Blood Neg (Negative) 06/07/16 07:39 Urine Nitrite Neg (Negative) 06/07/16 07:39 Urine Bilirubin Neg (Negative) 06/07/16 07:39 Urine Urobilinogen 2.0 mg/dL (<2.0) 06/07/16 07:39 Ur Leukocyte Esterase Mod (Negative) 06/07/16 07:39 Urine WBC (Auto) 34.0 /HPF (0.0-6.0) H 06/07/16 07:39 Urine RBC (Auto) 5.0 /HPF (0.0-6.0) 06/07/16 07:39 U Epithel Cells (Auto) < 1.0 /HPF (0-13.0) 06/07/16 07:39 Urine Bacteria (Auto) 2+ /HPF (Negative) 06/07/16 07:39 Blood Type O NEGATIVE 06/07/16 05:30 Antibody Screen TNR 06/07/16 05:30 ALEKSEY Antibody Screen Negative 06/07/16 05:30 Assessment and Plan - Patient Problems (1) GI bleed Current Visit: Yes Status: Acute Qualifiers: GI bleed type/associated pathology: G Gastritis type: G Plan to address problem: Patient history of coffee-ground emesis at the alf. We'll get GI consultation. We will follow CBC and transfuse as needed. Family has expressed that the only walk offering care measures and will decide about EGD/ colonoscopy (2) Coffee ground emesis Current Visit: Yes Status: Acute Plan to address problem: Start IV Protonix
[2016-06-07] MEDS ORDERED: PERCOCET 5/325 PO PRN (10:17)
[2016-06-07] MEDS ORDERED: DULCOLAX PR PRN (10:20)
[2016-06-07] MEDS ORDERED: TYLENOL PO PRN (10:20)
[2016-06-07] MEDS ORDERED: ZOFRAN IV PRN (10:20)
[2016-06-07] MEDS ORDERED: MILK OF MAGNESIA PO PRN (10:20)
[2016-06-07] MEDS ORDERED: NON-FORMULARY (Calcium Carbonate [Calcium] 600 MG) PO SCH (10:30)
[2016-06-07] MEDS ORDERED: LOPRESSOR ONE (10:51)
[2016-06-07] MEDS ORDERED: PROTONIX PO ONE (10:54)
[2016-06-07] MEDS ORDERED: HCTZ ONE (10:55)
[2016-06-07] MEDS ORDERED: KLOR-CON 8 PO SCH (11:00)
[2016-06-07] MEDS ORDERED: NACL 0.9% 1000 ML 1,000 ML IV SCH (11:00)
[2016-06-07] MEDS: LOPRESSOR PO SCH (11:06)
[2016-06-07] MEDS: HCTZ PO SCH (11:06)
[2016-06-07] MEDS: PROTONIX IV SCH (11:07)
[2016-06-07] MEDS: K-DUR PO SCH (12:45)
[2016-06-07 12:56] LABS: Mucus,Urine FEW /HPF
--- NOTE | 2016-06-07 17:05 | Event Note ---
Date: 06/07/16 - full consult dictated - no plans to scope at this time - ok to d/c in am if stable
[2016-06-07] MEDS ORDERED: XANAX PO SCH (22:00)
--- NOTE | 2016-06-08 01:04 | Consultation ---
REFERRING PHYSICIAN: Gerald Girard M.D. INDICATION: GI bleed. HISTORY OF PRESENT ILLNESS: The patient is an 89-year-old white female who lives in a fdc. The patient has a past medical history including dementia, hypertension, coronary artery disease, status post OK, high cholesterol. The patient is a do not resuscitate. The patient reportedly was having some nausea, vomiting, and then started having some question of coffee-ground emesis. The patient subsequently was transferred to the Emergency Room for further evaluation. Denies melena. Denies any bright red blood emesis. Since being seen in the Emergency Room last night, the patient has had no further bouts of nausea, vomiting, emesis. No other specific complaints. PAST MEDICAL HISTORY: 1. Hypertension. 2. Dysphagia. 3. Dementia. 4. Coronary artery disease, status post OK. 5. High cholesterol. MEDICATIONS: See chart. ALLERGIES: No known drug allergies. SOCIAL HISTORY: Lives in a fdc. FAMILY HISTORY: Noncontributory. REVIEW OF SYSTEMS: GENERAL: Reports mild weakness. HEENT: No visual complaints or tinnitus. PULMONARY: No shortness of breath. CARDIOVASCULAR: No chest pain. GASTROINTESTINAL: Reports question of coffee emesis. All points of 13-point review of systems otherwise negative. PHYSICAL EXAMINATION: VITAL SIGNS: Temperature of 98.0, pulse 65, respirations 20, blood pressure . GENERAL: Fairly thin female, in no acute distress. HEENT: Pupils equal, round, reactive. PULMONARY: Clear to auscultation bilaterally. CARDIOVASCULAR: Regular rate and rhythm. Normal S1, S2. ABDOMEN: Positive bowel sounds, soft. SKIN: No obvious rashes. LABORATORY DATA: Pertinent for white count of 8.0, hemoglobin and hematocrit of 11.9 and 37.3, platelet count 224. Chem-7 within normal limits. Coags within normal limits. ASSESSMENT AND PLAN: An 89-year-old white female with past medical history as noted above, now with a question of coffee emesis. I have had a long discussion with the patient's daughter who is adamant that she does not want her mother to undergo any procedures unless an emergent. The patient is otherwise stable with no significant GI problems or complaints. PLAN: 1. PPI daily. 2. Follow hematocrit and transfuse as needed. 3. Avoid NSAIDs and aspirin. 4. If H and H stable in a.m., okay to discharge from GI standpoint. 5. Further recommendation based on progress. JOB# [id number] CAB/NTS
[2016-06-08 04:39] LABS: Basophils % (Auto) 0.2 % (0.0-1.8); Eosinophils % (Auto) 8.4 % (0.0-4.3); Hematocrit 33.4 % (30.3-42.9); Hemoglobin 10.9 gm/dl (10.1-14.3); Mean Corpuscular HGB Conc 33 % (30-34); Mean Corpuscular Volume 78 fl (79-97); Platelet Count 212 K/mm3 (140-440); Red Cell Distribution Width 16.8 % (13.2-15.2); White Blood Count 5.5 K/mm3 (4.5-11.0)
[2016-06-08 04:48] LABS: Mean Corpuscular Hemoglobin 25 pg (28-32)
[2016-06-08 04:53] LABS: Albumin 3.4 g/dL (3.9-5); BUN/Creatinine Ratio 33.33; Bilirubin,Total 0.6 mg/dL (0.1-1.2); Calcium 9.2 mg/dL (8.4-10.2); Chloride 103.5 mmol/L (98-107); Potassium 3.6 mmol/L (3.6-5.0); Total Protein 6.7 g/dL (6.3-8.2)
--- NOTE | 2016-06-08 08:46 | Discharge Summary ---
Providers - Providers Date of Admission: 06/07/16 10:20 Date of discharge: 06/08/16 Attending physician: DIO PEDRAZA Primary care physician: MANAGER [employer] Hospitalization Condition: Fair Hospital course: Patient is an 89-year-old female presents to the ER from local [facility], her primary care physician is myself. Patient is demented, history of DO NOT RESUSCITATE, DO NOT INTUBATE. Patient's past medical history includes advanced dementia, dysphasia, hypertension, myocardial infarction, high cholesterol. History is obtained by speaking to her 2 daughters. The patient is brought to the hospital by EMS for vomiting of coffee-ground emesis. The patient is alert and oriented 1, and denies complaints. Family thinks that she is up-to-date with vaccinations. Family reports that the patient had a mechanical fall over the weekend, and has right periorbital ecchymosis. They further report that the patient received x-rays at the facility which were negative. Family indicates that their goals of care are for comfort, patient is DO NOT RESUSCITATE, DO NOT INTUBATE. The family is amenable to hospital admission, IV fluids, packed red blood cells. They are ambivalent about upper endoscopy at this time. Patient was admitted to the hospital for coffee ground emesis but her hemoglobin and hematocrit remained stable during hospital stay and patient had no signs of active bleeding. Patient was evaluated by GI and GI felt that patient was not a candidate for invasive GI procedures. Family only wanted comforting care measures. So patient returned back to her baseline because she is known by myself from the rehabilitation facility. Patient will be discharged back to [facility] in stable condition. Disposition: DC/TX SNF W [facility] CERT - Discharge Diagnoses (1) GI bleed Status: Acute Qualifiers: GI bleed type/associated pathology: G Gastritis type: G (2) Coffee ground emesis Status: Acute Core Measure Documentation - Palliative Care Palliative Care/ Comfort Measures: Not Applicable - Core Measures Any of the following diagnoses?: none Exam - Constitutional Vitals: Temp Pulse Resp BP Pulse Ox 98.0 F 77 16 160/83 95 06/07/16 12:31 06/07/16 22:00 06/07/16 12:57 06/07/16 12:31 06/08/16 08:40 General appearance: Present: no acute distress - EENT Eyes: Present: PERRL, EOM intact ENT: hearing intact, clear oral mucosa - Neck Neck: Present: supple, normal ROM - Respiratory Respiratory effort: normal Respiratory: bilateral: CTA - Cardiovascular Rhythm: regular Heart Sounds: Present: S1 & S2 - Extremities Extremities: no ischemia, No edema - Abdominal General gastrointestinal: Present: soft, non-tender, non-distended, normal bowel sounds - Musculoskeletal Musculoskeletal: strength equal bilaterally - Psychiatric Psychiatric: appropriate mood/affect, intact judgment & insight - Neurologic Neurologic: CNII-XII intact, moves all extremities Plan Activity: advance as tolerated Weight Bearing Status: Non-Weight Bearing Diet: low fat, low cholesterol, low salt Follow up with: PRIMARY CARE, [Primary Care Provider] - 3-5 Days Forms: Accompanied Note Prescriptions: ALPRAZolam [Xanax TAB] 0.5 mg PO QHS #30 tablet Calcium Carbonate [Calcium] 600 mg PO QDAY #30 tablet Hydrochlorothiazide [HCTZ] 12.5 mg PO DAILY #30 capsule Metoprolol [Lopressor TAB] 50 mg PO DAILY #30 tablet oxyCODONE /ACETAMINOPHEN [Percocet 5/325 mg] 1 tab PO Q6H PRN #30 tablet PRN Reason: Moder Pain Unrelieved By Edgar Potassium Chloride [Klor-Con 8] 10 meq PO DAILY #30 tablet QUEtiapine [SEROquel] 25 mg PO QDAY #30 tablet
--- NOTE | 2016-06-08 09:17 | Gastroenterology Progress Note ---
Assessment and Plan GI: stable overnight w/o signs bleeding - follow h/h - ok to d/c from GI standpoint - will sign off, call if needed Subjective Date of service: 06/08/16 Interval history: - pt stable w/o signs bleeding overnight Objective - Constitutional Vitals: Temp Pulse Resp BP Pulse Ox 98.0 F 77 16 160/83 95 06/07/16 12:31 06/07/16 22:00 06/07/16 12:57 06/07/16 12:31 06/08/16 08:40 General appearance: no acute distress - Respiratory Respiratory: bilateral: CTA - Cardiovascular Rhythm: regular Heart Sounds: Present: S1 & S2 - Gastrointestinal General gastrointestinal: Present: soft, non-tender, non-distended - Labs CBC & Chem 7: 06/08/16 04:09 06/08/16 04:09 Labs: Laboratory Results - last 24 hr 06/08/16 06/08/16 04:09 04:09 WBC 5.5 RBC 4.30 Hgb 10.9 Hct 33.4 MCV 78 L MCH 25 L MCHC 33 RDW 16.8 H Plt Count 212 Lymph % (Auto) 31.8 Russell % (Auto) 8.5 H Eos % (Auto) 8.4 H Baso % (Auto) 0.2 Lymph # 1.7 Russell # 0.5 Eos # 0.5 H Baso # 0.0 Seg Neutrophils % 51.1 Seg Neutrophils # 2.8 Sodium 142 Potassium 3.6 Chloride 103.5 Carbon Dioxide 23 Anion Gap 19 BUN 30 H Creatinine 0.9 Estimated GFR 59 BUN/Creatinine Ratio 33.33 Glucose 83 Calcium 9.2 Total Bilirubin 0.6 AST 25 ALT 16 Alkaline Phosphatase 155 H Total Protein 6.7 Albumin 3.4 L Albumin/Globulin Ratio 1.0
[2016-06-08 09:46] VITALS: BP 135/78
[2016-06-08] MEDS ORDERED: TUMS PO SCH (10:00)
[2016-06-08] MEDS: PROTONIX IV SCH (10:08)
[2016-06-08] MEDS: K-DUR PO SCH (10:08)
[2016-06-08] MEDS: LOPRESSOR PO SCH (10:09)
[2016-06-08] MEDS: HCTZ PO SCH (10:09)
--- NOTE | 2016-06-13 08:07 | Query- General ---
Dear Date:_06/13/16 Relocation Coordinator/CDS:Mike/Oliver Church Phone#:_[phone] Exercise your independent professional judgment when responding to this query. Questions asked do not imply a particular answer is desired or expected. We greatly appreciate your clarification on this issue. Clinical Documentation States: Patient is an 89-year-old female [facility], her primary care physician is myself. The patient is brought to the hospital by EMS for vomiting of coffee-ground emesis. The patient is alert and oriented 1, and denies complaints. Family thinks that she is up-to-date with vaccinations. Family reports that the patient had a mechanical fall over the weekend, and has right periorbital ecchymosis. Clinical Findings Show (include reference to source document): Urine WBC: 34 Urine Bacteria: 2+ Given Ceftriaxone Given the above clinical scenario can you please provide an appropriate diagnosis based on your knowledge of the patient: PHYSICIAN RESPONSE: [ x ] Urinary Tract Infection [ ] Other [ ] Unable to determine Present on Admission: [x ] Yes (Y) [ ] Clinically undeterminable (W) [ ]No(N) Please also document response in your Progress Notes and/or Discharge Summary and indicate if the condition was present on admission. ARTUROD
== END 2016-06-08 18:00 | DRG 378 ==
LOC: ED 04:14 → CC2 10:20
PROVIDERS: ADMIT Internal Medicine; ATTEND Internal Medicine
DX: K92.2 Gastrointestinal hemorrhage, unspecified (principal); N39.0 Urinary tract infection, site not specified; K92.0 Hematemesis; M19.90 Unspecified osteoarthritis, unspecified site; F41.9 Anxiety disorder, unspecified; I10 Essential (primary) hypertension; Z66 Do not resuscitate; I25.10 Atherosclerotic heart disease of native coronary artery without angina pectoris; Z88.8 Allergy status to other drugs, medicaments and biological substances; I25.2 Old myocardial infarction
CPT/HCPCS: 36415; 70450; 71010; 80053; 81001; 82271; 83690; 85025; 85610; 85730; 86850; 86900; 86901; 93005; 93010; 96365; 96375; 96376; C9113; J0696; J7030

== ENCOUNTER 2016-07-11 16:03 | Emergency (ER) | payer MEDICARE ==
--- NOTE | 2016-07-11 17:09 | Emergency Department Report ---
HPI - General Chief Complaint: Fall Time Seen by Provider: 07/11/16 16:55 - HPI HPI: This is a 89-year-old female presents to the emergency department from her intermediate with complaint of a recent fall and some abnormal x-ray results. The patient was witnessed sliding off a sofa onto her left shoulder. She did not hit her head or have any loss of consciousness. This happened yesterday and family came in shortly afterwards requesting some x-rays. X-rays were done by the facility that showed an old left humerus fracture and a subacute left acetabular fracture. Family brought her in to be seen for further evaluation. The patient has history of dementia, coronary artery disease, hypertension, hyperlipidemia. She has been to [facility] orthopedics in the past and they "did not do anything." The patient had a hip fracture 3 years ago and went to [facility] but has not been ambulatory since that time. ED Past Medical Hx - Past Medical History Hx Hypertension: Yes Hx Heart Attack/AMI: Yes Hx Congestive Heart Failure: No Hx Diabetes: No Hx Deep Vein Thrombosis: No Hx Pulmonary Embolism: No Hx Liver Disease: No Hx Renal Disease: No Hx Sickle Cell Disease: No Hx Arthritis: Yes Hx Seizures: No Hx Kidney Stones: No Hx Asthma: No Hx COPD: No Hx Tuberculosis: No Hx Dementia: Yes Hx HIV: No Additional medical history: DNR. heart disease. hyperlipidemia. anxiety. dysphagia - Surgical History Hx Coronary Stent: No Hx Pacemaker: Yes Hx Internal Defibrillator: No Hx Appendectomy: Yes Additional Surgical History: Craniotomy for brain tumor - Social History Smoking Status: Never Smoker Substance Use Type: None - Medications Home Medications: Home Medications Medication Instructions Recorded Confirmed Last Taken Type Aspirin EC [Aspirin Enteric Coated 81 mg PO QDAY #30 tablet 03/04/14 07/11/16 Rx TAB] ALPRAZolam [Xanax TAB] 0.5 mg PO QHS #30 tablet 06/08/16 07/11/16 Unknown Rx Calcium Carbonate [Calcium] 600 mg PO QDAY #30 tablet 06/08/16 07/11/16 Unknown Rx Hydrochlorothiazide [HCTZ] 12.5 mg PO DAILY #30 capsule 06/08/16 07/11/16 Unknown Rx Metoprolol [Lopressor TAB] 50 mg PO DAILY #30 tablet 06/08/16 07/11/16 Unknown Rx Pantoprazole [Protonix] 40 mg PO QDAY #30 tablet 06/08/16 07/11/16 Unknown Rx Potassium Chloride [Klor-Con 8] 10 meq PO DAILY #30 tablet 06/08/16 07/11/16 Unknown Rx QUEtiapine [SEROquel] 25 mg PO QDAY #30 tablet 06/08/16 07/11/16 Unknown Rx oxyCODONE /ACETAMINOPHEN [Percocet 1 tab PO Q6H PRN #30 tablet 06/08/16 Unknown Rx 5/325 mg] ED Review of Systems ROS: Stated complaint: FALL/CARE HOME WANTS HER CHECKED OUT Other details as noted in HPI Comment: All other systems reviewed and negative Constitutional: denies: chills, fever Eyes: denies: eye pain, eye discharge, vision change ENT: denies: ear pain, throat pain Respiratory: denies: cough, shortness of breath, wheezing Cardiovascular: denies: chest pain, palpitations Gastrointestinal: denies: abdominal pain, nausea, diarrhea Genitourinary: denies: urgency, dysuria, discharge Musculoskeletal: arthralgia. denies: back pain Skin: denies: rash, lesions Neurological: denies: headache, weakness, paresthesias Physical Exam - Physical Exam Vital Signs: Vital Signs 07/11/16 16:34 Temperature 97.6 F Pulse Rate 56 L Respiratory 18 Rate Blood Pressure 125/68 O2 Sat by Pulse 99 Oximetry Physical Exam: GENERAL: Patient is elderly appearing and chronically debilitated. HEENT: Normocephalic. Atraumatic. Extraocular motions are intact. Patient has moist mucous membranes. No septal hematoma. NECK: Supple. Trachea is midline. No tenderness to palpation. No step-off or deformity. CHEST/LUNGS: Clear to auscultation. There is no respiratory distress noted. HEART/CARDIOVASCULAR: Regular. There is no tachycardia. There is no gallop rub or murmur. ABDOMEN: Abdomen is soft, nontender. Patient has normal bowel sounds. There is no abdominal distention. SKIN: Skin is warm and dry. NEURO: Patient has been nonverbal. She appears confused, which is chronic but therefore does not follow many commands. Withdraws to painful stimuli. MUSCULOSKELETAL: There is no tenderness to palpation to any of her extremities but specifically none with palpation of the left hip or left shoulder. Patient seen moving all of her extremities to some extent. Radial pulses +2 over 4 bilaterally. ED Course Vital Signs 07/11/16 16:34 Temperature 97.6 F Pulse Rate 56 L Respiratory 18 Rate Blood Pressure 125/68 O2 Sat by Pulse 99 Oximetry - Consultations Consultation #1: I spoke with Dr. Lopez, the orthopedist on-call, regarding the patient's recent fall, her old fractures, and the current x-ray and CT findings. He agrees with the plan of an arm sling and follow-up with the orthopedist. 07/12/16 00:23 ED Medical Decision Making - Radiology Data Radiology results: report reviewed EXAM: XR CHEST 1V AP HISTORY: fall TECHNIQUE: Frontal chest radiograph. PRIORS: None. FINDINGS: A left chest pacemaker is seen. The cardiomediastinal silhouette is normal. No focal consolidation. The lungs are hyperinflated. No pleural effusion. No pneumothorax. No acute osseous abnormality. Chronic destructive changes of both shoulders are seen. Several old right-sided rib fractures are seen. IMPRESSION: No acute cardiopulmonary process. Findings of COPD. Transcribed By: MG Dictated By: NOHEMY PAIGE MD Electronically Authenticated By: NOHEMY PAIGE MD Signed Date/Time: 07/11/16 1840 EXAM: CT PELVIS WO CON HISTORY: Fall, hip pain TECHNIQUE: Noncontrast serial axial images through the pelvis with coronal and sagittal reconstruction PRIORS: None. FINDINGS: There is a large amount of stool in the rectal vault. Scattered diverticula are seen arising from the distal colon. Degenerative changes are seen lower lumbar spine, pubic symphysis and bilateral hips, worse on the left where there is protrusio deformity. There is a healed right inferior pubic ramus fracture. There is slightly irregular contour to the right superior pubic ramus which can be seen series 200, image 44. There is irregular contour to the anterior aspect of the left inferior pubic ramus which can be seen series 2, image 171. IMPRESSION: 1. Degenerative changes are noted. 2. Healed right inferior pubic ramus fracture. 3. Irregular contour in the right superior pubic ramus and left inferior pubic ramus may be related to prior trauma, but possibility of fracture is not excluded in the setting of acute trauma. 4. There is a large amount of stool in the rectal vault. The appearance suggests fecal impaction. 5. Diverticulosis. Transcribed By: ARELY Dictated By: BARRY VICTORIA MD Electronically Authenticated By: BARRY VICTORIA MD Signed Date/Time: 07/11/161751 EXAM: XR SHOULDER 2 LT HISTORY: Fall, shoulder pain TECHNIQUE: Left shoulder four views 4 images PRIORS: None. FINDINGS: Osteopenia is noted. There is fracture of the proximal humerus with anterior, medial and proximal displacement of the distal fragment. Visualized portion of the left lung is clear. IMPRESSION: 1. Proximal left humerus fracture. There are currently no studies available for direct comparison. It is possible that this is from prior injury, but is consistent with an acute fracture in the setting of trauma. This can be further assessed with CT if indicated. Transcribed By: ARELY Dictated By: BARRY VICTORIA MD Electronically Authenticated By: BARRY VICTORIA MD Signed Date/Time: 07/11/16 182 - Medical Decision Making This is a 89-year-old female presents to the emergency department from her [facility] with her family at bedside for an evaluation after the patient had a fall yesterday. The family requested that x-rays be done by the facility and they were sent in showing a possible left acetabular fracture and a left proximal humerus fracture that is most likely old. Physical exam the patient does not appear to have any tenderness to palpation to any of her extremities but especially in these 2 areas. Patient was seen moving all of her extremities to some extent but I was able to move them with passive motion and she does not appear to have any significant restriction or discomfort with doing so. A CT of the pelvis was done to get a better look at the bones with this recent x-ray showed concern for acetabular fracture. However the CT did not show any acute fractures, only some old healed right pelvic fractures. X-ray of the left humerus and/or shoulder shows a humeral head fracture that is medially and posteriorly displaced but it appears chronic in nature. Chest x-ray shows old healed rib fractures. I spoke with the orthopedist who agrees with the plan for a sling and follow-up with her orthopedist in the next few days. Even if the patient had any significant, but non-emergent, fractures and/or required any type of surgical intervention, the family does not desire is to be done. The patient will be discharge back to her ECF to follow-up with her orthopedist at [facility]. - Differential Diagnosis Fracture, dislocation, contusion, sprain Critical Care Time: No Critical care attestation.: If time is entered above; I have spent that time in minutes in the direct care of this critically ill patient, excluding procedure time. ED Disposition Clinical Impression: Frequent falls, Arthritis Fall Qualifiers: Encounter type: initial encounter Qualified Code(s): W19.XXXA - Unspecified fall, initial encounter Shoulder fracture, left Qualifiers: Encounter type: subsequent encounter Fracture healing: with nonunion Qualified Code(s): S42.92XK - Fracture of left shoulder girdle, part unspecified, subsequent encounter for fracture with nonunion Dementia Qualifiers: Dementia type: unspecified type Dementia behavioral disturbance: without behavioral disturbance Qualified Code(s): F03.90 - Unspecified dementia without behavioral disturbance Disposition: DISCHARGED TO HOME OR SELFCARE Is pt being admited?: No Condition: Stable Instructions: Arthralgia (ED), Fall Prevention (ED) Additional Instructions: You have been seen here for a recent fall. The x-rays of the left shoulder shows concern for a proximal humerus fracture. This appears consistent with your previous injury and based on her physical examination I do not believe that there is any new fracture necessarily. However you have been placed in a sling and it is recommended to follow-up with an orthopedist. You could go back and see your orthopedist at [facility] or given you a referral for a different orthopedist, Dr. Lopez. Return to the emergency department with any worsening of your symptoms or any acute distress. Referrals: DENNIS LOPEZ MD [Staff Physician] - 3-5 Days Time of Disposition: 18:59
--- NOTE | 2016-07-11 17:57 | Cat Scan Report ---
FINAL REPORT EXAM: CT PELVIS WO CON HISTORY: Fall, hip pain TECHNIQUE: Noncontrast serial axial images through the pelvis with coronal and sagittal reconstruction PRIORS: None. FINDINGS: There is a large amount of stool in the rectal vault. Scattered diverticula are seen arising from the distal colon. Degenerative changes are seen lower lumbar spine, pubic symphysis and bilateral hips, worse on the left where there is protrusio deformity. There is a healed right inferior pubic ramus fracture. There is slightly irregular contour to the right superior pubic ramus which can be seen series 200, image 44. There is irregular contour to the anterior aspect of the left inferior pubic ramus which can be seen series 2, image 171. IMPRESSION: 1. Degenerative changes are noted. 2. Healed right inferior pubic ramus fracture. 3. Irregular contour in the right superior pubic ramus and left inferior pubic ramus may be related to prior trauma, but possibility of fracture is not excluded in the setting of acute trauma. 4. There is a large amount of stool in the rectal vault. The appearance suggests fecal impaction. 5. Diverticulosis.
--- NOTE | 2016-07-11 18:29 | XRay Report ---
FINAL REPORT EXAM: XR SHOULDER 2 LT HISTORY: Fall, shoulder pain TECHNIQUE: Left shoulder four views 4 images PRIORS: None. FINDINGS: Osteopenia is noted. There is fracture of the proximal humerus with anterior, medial and proximal displacement of the distal fragment. Visualized portion of the left lung is clear. IMPRESSION: 1. Proximal left humerus fracture. There are currently no studies available for direct comparison. It is possible that this is from prior injury, but is consistent with an acute fracture in the setting of trauma. This can be further assessed with CT if indicated.
--- NOTE | 2016-07-11 18:45 | XRay Report ---
FINAL REPORT EXAM: XR CHEST 1V AP HISTORY: fall TECHNIQUE: Frontal chest radiograph. PRIORS: None. FINDINGS: A left chest pacemaker is seen. The cardiomediastinal silhouette is normal. No focal consolidation. The lungs are hyperinflated. No pleural effusion. No pneumothorax. No acute osseous abnormality. Chronic destructive changes of both shoulders are seen. Several old right-sided rib fractures are seen. IMPRESSION: No acute cardiopulmonary process. Findings of COPD.
[2016-07-11 19:54] VITALS: BP 120/70
== END 2016-07-11 19:50 | disposition home or self-care (01) ==
LOC: ED 16:03
DX: S42.92XK Fracture of left shoulder girdle, part unspecified, subsequent encounter for fracture with nonunion (principal); M19.90 Unspecified osteoarthritis, unspecified site; M25.552 Pain in left hip; M25.551 Pain in right hip; F03.90 Unspecified dementia, unspecified severity, without behavioral disturbance, psychotic disturbance, mood disturbance, and anxiety; I10 Essential (primary) hypertension; I25.2 Old myocardial infarction; W18.30XA Fall on same level, unspecified, initial encounter; Y93.9 Activity, unspecified; Y92.9 Unspecified place or not applicable; Y99.9 Unspecified external cause status
CPT/HCPCS: 71010; 72192; 99284

== ENCOUNTER 2017-01-12 10:45 | Inpatient (IN) | payer MEDICARE ==
[2017-01-12] MEDS ORDERED: NARCAN 2 MG/2 ML IV ONE (10:50)
[2017-01-12] MEDS ORDERED: NARCAN 2 MG/2 ML ONE (10:50)
--- NOTE | 2017-01-12 10:55 | Emergency Department Report ---
HPI - General Time Seen by Provider: 01/12/17 10:48 - HPI HPI: Room 21 The patient is an 89-year-old female presenting with chief complaint of altered mental status. Per EMS the patient was sent from a halfway for decreased responsiveness. EMS states to halfway report the patient has had decreasing responsiveness and decreased appetite over the past 2-3 days. EMS states family initially refused to have the patient transported to the ED for evaluation yesterday. There is currently no family at bedside was informed that they are en route. The patient grimaces and localizes to sternal rub but does not speak. Location: Mental state Duration: 2-3 days Quality: Decreased Responsiveness Severity: Moderate Modifying factors: [see above] Context: [see above] Mode of transportation: [not driving] ED Past Medical Hx - Past Medical History Hx Hypertension: Yes Hx CVA: Yes Hx Heart Attack/AMI: Yes Hx Arthritis: Yes Hx Dementia: Yes Additional medical history: DNR. heart disease. hyperlipidemia. anxiety. dysphagia - Surgical History Hx Pacemaker: Yes Hx Appendectomy: Yes Additional Surgical History: Craniotomy for brain tumor - Family History Family history: no significant - Social History Smoking Status: Never Smoker Substance Use Type: None - Medications Home Medications: Home Medications Medication Instructions Recorded Confirmed Last Taken Type Aspirin EC [Aspirin Enteric Coated 81 mg PO QDAY #30 tablet 03/04/14 07/11/16 Rx TAB] ALPRAZolam [Xanax TAB] 0.5 mg PO QHS #30 tablet 06/08/16 07/11/16 Unknown Rx Calcium Carbonate [Calcium] 600 mg PO QDAY #30 tablet 06/08/16 07/11/16 Unknown Rx Hydrochlorothiazide [HCTZ] 12.5 mg PO DAILY #30 capsule 06/08/16 07/11/16 Unknown Rx Metoprolol [Lopressor TAB] 50 mg PO DAILY #30 tablet 06/08/16 07/11/16 Unknown Rx Pantoprazole [Protonix] 40 mg PO QDAY #30 tablet 06/08/16 07/11/16 Unknown Rx Potassium Chloride [Klor-Con 8] 10 meq PO DAILY #30 tablet 06/08/16 07/11/16 Unknown Rx QUEtiapine [SEROquel] 25 mg PO QDAY #30 tablet 06/08/16 07/11/16 Unknown Rx oxyCODONE /ACETAMINOPHEN [Percocet 1 tab PO Q6H PRN #30 tablet 06/08/16 Unknown Rx 5/325 mg] ED Review of Systems ROS: Stated complaint: NONRESPONSIVE Other details as noted in HPI Comment: Unobtainable due to pts medical conditions Physical Exam - Physical Exam Physical Exam: GENERAL: The patient is well-developed well-nourished elderly female lying on stretcher only responsive to sternal rub. [] HEENT: Normocephalic. Atraumatic. Pupils 3-->2 mm bilaterally. Patient has moist mucous membranes. NECK: Trachea midline CHEST/LUNGS: Clear to auscultation. There is mild tachypnea HEART/CARDIOVASCULAR: Regular. There is tachycardia. There is no gallop rub or murmur. ABDOMEN: Abdomen is soft, nontender. Patient has normal bowel sounds. There is no abdominal distention. SKIN: There is no rash. There is no edema. There is no diaphoresis. NEURO: The patient is only responsive to sternal rub. MUSCULOSKELETAL: There is no evidence of acute injury. ED Course - Consultations Consultation #1: 01/12/17 12:31 Tele-neurology paged 01/12/17 12:[address] Green- outside of window for TPA and/or thrombectomy. Recommends admission and comfort care CVA workup ED Medical Decision Making - Lab Data Result diagrams: 01/12/17 11:32 01/12/17 11:00 Laboratory Tests 01/12/17 01/12/17 01/12/17 11:00 11:00 11:00 WBC RBC Hgb Hct MCV MCH MCHC RDW Lymph % (Auto) [place] % (Auto) Eos % (Auto) Baso % (Auto) Lymph # [place] # Eos # Baso # Seg Neutrophils % Seg Neutrophils # PT 15.0 H INR 1.12 APTT 31.3 Sodium 145 Potassium 4.2 Chloride 104.4 Carbon Dioxide 19 L Anion Gap 26 BUN 34 H Creatinine 1.2 Estimated GFR 42 BUN/Creatinine Ratio 28 Glucose 153 H Calcium 9.3 Total Bilirubin 0.90 AST 32 ALT 18 Alkaline Phosphatase 111 Ammonia Total Creatine Kinase 73 CK-MB (CK-2) 2.9 CK-MB (CK-2) Rel Index 3.9 Troponin T 0.043 H NT-Pro-B Natriuret Pep 6781 H Total Protein 7.7 Albumin 3.5 L Albumin/Globulin Ratio 0.8 Triglycerides 177 H Cholesterol 160 LDL Cholesterol Direct 84 HDL Cholesterol 41 Cholesterol/HDL Ratio 3.90 TSH 1.700 Free T4 1.34 Urine Color Urine Turbidity Urine pH Ur Specific [place] Urine Protein Urine Glucose (UA) Urine Ketones Urine Blood Urine Nitrite Urine Bilirubin Urine Urobilinogen Ur Leukocyte Esterase Urine WBC (Auto) Urine RBC (Auto) U Epithel Cells (Auto) Urine Bacteria (Auto) Urine Opiates Screen Urine Methadone Screen Ur Barbiturates Screen Ur Phencyclidine Scrn Ur Amphetamines Screen U Benzodiazepines Scrn Urine Cocaine Screen U Marijuana (THC) Screen Drugs of Abuse Note Plasma/Serum Alcohol 01/12/17 01/12/17 01/12/17 11:12 11:12 11:32 WBC 12.1 H RBC 5.29 H Hgb 13.3 Hct 42.2 MCV 80 MCH 25 L MCHC 32 RDW 18.1 H Lymph % (Auto) 10.6 L [place] % (Auto) 8.9 H Eos % (Auto) 0.9 Baso % (Auto) 0.4 Lymph # 1.3 [place] # 1.1 H Eos # 0.1 Baso # 0.0 Seg Neutrophils % 79.2 H Seg Neutrophils # 9.6 H PT INR APTT Sodium Potassium Chloride Carbon Dioxide Anion Gap BUN Creatinine Estimated GFR BUN/Creatinine Ratio Glucose Calcium Total Bilirubin AST ALT Alkaline Phosphatase Ammonia Total Creatine Kinase CK-MB (CK-2) CK-MB (CK-2) Rel Index Troponin T NT-Pro-B Natriuret Pep Total Protein Albumin Albumin/Globulin Ratio Triglycerides Cholesterol LDL Cholesterol Direct HDL Cholesterol Cholesterol/HDL Ratio TSH Free T4 Urine Color [place] Urine Turbidity Clear Urine pH 5.0 Ur Specific [place] 1.017 Urine Protein 100 mg/dl Urine Glucose (UA) Neg Urine Ketones Neg Urine Blood Sm Urine Nitrite Pos Urine Bilirubin Neg Urine Urobilinogen 2.0 Ur Leukocyte Esterase Mod Urine WBC (Auto) > 182.0 H Urine RBC (Auto) 32.0 U Epithel Cells (Auto) 11.0 Urine Bacteria (Auto) 4+ Urine Opiates Screen Presumptive negative Urine Methadone Screen Presumptive negative Ur Barbiturates Screen Presumptive negative Ur Phencyclidine Scrn Presumptive negative Ur Amphetamines Screen Presumptive negative U Benzodiazepines Scrn Presumptive negative Urine Cocaine Screen Presumptive negative U Marijuana (THC) Screen Presumptive negative Drugs of Abuse Note Disclamer Plasma/Serum Alcohol 01/12/17 01/12/17 11:32 11:32 WBC RBC Hgb Hct MCV MCH MCHC RDW Lymph % (Auto) [place] % (Auto) Eos % (Auto) Baso % (Auto) Lymph # [place] # Eos # Baso # Seg Neutrophils % Seg Neutrophils # PT INR APTT Sodium Potassium Chloride Carbon Dioxide Anion Gap BUN Creatinine Estimated GFR BUN/Creatinine Ratio Glucose Calcium Total Bilirubin AST ALT Alkaline Phosphatase Ammonia 25.0 Total Creatine Kinase CK-MB (CK-2) CK-MB (CK-2) Rel Index Troponin T NT-Pro-B Natriuret Pep Total Protein Albumin Albumin/Globulin Ratio Triglycerides Cholesterol LDL Cholesterol Direct HDL Cholesterol Cholesterol/HDL Ratio TSH Free T4 Urine Color Urine Turbidity Urine pH Ur Specific [place] Urine Protein Urine Glucose (UA) Urine Ketones Urine Blood Urine Nitrite Urine Bilirubin Urine Urobilinogen Ur Leukocyte Esterase Urine WBC (Auto) Urine RBC (Auto) U Epithel Cells (Auto) Urine Bacteria (Auto) Urine Opiates Screen Urine Methadone Screen Ur Barbiturates Screen Ur Phencyclidine Scrn Ur Amphetamines Screen U Benzodiazepines Scrn Urine Cocaine Screen U Marijuana (THC) Screen Drugs of Abuse Note Plasma/Serum Alcohol < 0.01 - EKG Data -: EKG Interpreted by Me EKG shows normal: sinus rhythm Rate: normal - EKG Data When compared to previous EKG there are: previous EKG unavailable Interpretation: nonspecific ST-T wave samina (T-wave inversions in leads V2, V3, V4 , V5, V6) - Radiology Data Radiology results: image reviewed (CT head, chest x-ray) interpreted by me: Chest x-ray- no focal infiltrates, no pneumothorax CT HEAD WITHOUT CONTRAST: HISTORY: Altered mental status, stroke. TECHNIQUE: Sequential 2.5mm CT images. COMPARISON: 06/07/16. FINDINGS: There is a large area of diminished attenuation throughout the left MCA distribution with loss of the normal argueta-white interface measuring up to 9.7 x 3.8 cm in axial plane. This has the appearance of a large subacute left MCA infarct. There is a similar-appearing area of diminished attenuation throughout the right NURSE RECEPTIONIST distribution measuring 9.2 x 3.9 cm in axial plane. This also has the appearance of a large subacute right NURSE RECEPTIONIST infarct. There are also new areas of abnormal attenuation in both thalami consistent with subacute focal infarcts. Volume loss and chronic white matter changes are stable. Cortical encephalomalacia in the left anterior temporal lobe is stable and likely related to previous surgery. Ventricular size is normal. There is no evidence for hemorrhage or extra-axial fluid collection. Chronic 2 cm right cerebellar infarct noted. IMPRESSION: Large subacute ischemic infarcts are suspected in the left MCA distribution and right NURSE RECEPTIONIST distribution. Smaller bilateral thalamic infarcts are also suspected. These findings were discussed with Dr. Burk in the emergency department at 1222 hrs. Transcribed By: TTR Dictated By: KACEY FANG JR, MD Electronically Authenticated By: KACEY FANG JR, MD Signed Date/Time: 01/12/171224 DD/ 18 TD/TT: 01/12/17 1225 - Differential Diagnosis sepsis, ICH, ACS, UTI, hepatic encephalopathy, metabolic encephalopathy Critical care attestation.: If time is entered above; I have spent that time in minutes in the direct care of this critically ill patient, excluding procedure time. ED Disposition Clinical Impression: Altered mental status, CVA (cerebral infarction), UTI (urinary tract infection) Disposition: 09 OP ADMIT IP TO THIS HOSP Is pt being admited?: Yes Does the pt Need Aspirin: Yes Condition: Serious Referrals: PRIMARY CARE, [Primary Care Provider] - 3-5 Days Time of Disposition: 12:46 (hospitalist notified Dr Haque)
[2017-01-12 11:25] LABS: Urine Drugs of Abuse Note Disclamer
[2017-01-12 11:32] LABS: Creatine Kinase MB 2.9 ng/mL (0.0-4.0)
[2017-01-12 11:33] LABS: Albumin 3.5 g/dL (3.9-5); Albumin/Globulin Ratio 0.8 %; Bilirubin,Total 0.9 mg/dL (0.1-1.2); Calcium 9.3 mg/dL (8.4-10.2); Chloride 104.4 mmol/L (98-107); Potassium 4.2 mmol/L (3.6-5.0); Total Protein 7.7 g/dL (6.3-8.2)
--- NOTE | 2017-01-12 11:37 | XRay Report ---
AP CHEST: HISTORY: Decreased responsiveness, altered mental status The pacemaker device is unchanged since 07/11/16. Heart and mediastinal structures are within normal limits. The lungs are clear. No evidence for pneumonia, CHF or pneumothorax. Osteopenia. IMPRESSION: No acute cardiopulmonary process is identified.
[2017-01-12 11:38] LABS: Bacteria,Urine 4+ /HPF (Negative); Bilirubin,Urine NEG (Negative); Blood,Urine SM (Negative); Ketones,Urine NEG (Negative); Leukocyte Esterase,Urine MOD (Negative); Nitrite,Urine POS (Negative)
[2017-01-12 11:38] LABS: INR 1.12 (0.87-1.13); Partial Thromboplastin Time 31.3 Sec. (24.2-36.6)
[2017-01-12 11:40] LABS: WBC,Urine > 182.0 /HPF (0.0-6.0)
[2017-01-12] MEDS ORDERED: LEVAQUIN 500MG/100ML 500 MG/100 ML BAG IV ONE (11:53)
[2017-01-12 12:08] LABS: Basophils % (Auto) 0.4 % (0.0-1.8); Eosinophils % (Auto) 0.9 % (0.0-4.3); Hematocrit 42.2 % (30.3-42.9); Hemoglobin 13.3 gm/dl (10.1-14.3); Mean Corpuscular HGB Conc 32 % (30-34); Mean Corpuscular Volume 80 fl (79-97); Red Blood Count 5.29 M/mm3 (3.65-5.03); Red Cell Distribution Width 18.1 % (13.2-15.2); White Blood Count 12.1 K/mm3 (4.5-11.0)
[2017-01-12 12:11] LABS: Mean Corpuscular Hemoglobin 25 pg (28-32)
--- NOTE | 2017-01-12 12:29 | Cat Scan Report ---
CT HEAD WITHOUT CONTRAST: HISTORY: Altered mental status, stroke. TECHNIQUE: Sequential 2.5mm CT images. COMPARISON: 06/07/16. FINDINGS: There is a large area of diminished attenuation throughout the left MCA distribution with loss of the normal argueta-white interface measuring up to 9.7 x 3.8 cm in axial plane. This has the appearance of a large subacute left MCA infarct. There is a similar-appearing area of diminished attenuation throughout the right HEEL EDGE INKER MACHINE distribution measuring 9.2 x 3.9 cm in axial plane. This also has the appearance of a large subacute right HEEL EDGE INKER MACHINE infarct. There are also new areas of abnormal attenuation in both thalami consistent with subacute focal infarcts. Volume loss and chronic white matter changes are stable. Cortical encephalomalacia in the left anterior temporal lobe is stable and likely related to previous surgery. Ventricular size is normal. There is no evidence for hemorrhage or extra-axial fluid collection. Chronic 2 cm right cerebellar infarct noted. IMPRESSION: Large subacute ischemic infarcts are suspected in the left MCA distribution and right HEEL EDGE INKER MACHINE distribution. Smaller bilateral thalamic infarcts are also suspected. These findings were discussed with Dr. Burk in the emergency department at 1222 hrs.
[2017-01-12] MEDS ORDERED: ASPIRIN PR ONE (12:32)
[2017-01-12 12:48] LABS: Platelet Count 223 K/mm3 (140-440)
[2017-01-12] MEDS ORDERED: NORMODYNE IV ONE ×2 (14:26→14:29)
[2017-01-12] MEDS ORDERED: PERCOCET 5/325 PO PRN (21:45)
[2017-01-12] MEDS ORDERED: OSCAL PO SCH (21:45)
--- NOTE | 2017-01-12 21:45 | History and Physical Report ---
History of Present Illness Date of examination: 01/12/17 Date of admission: 01/12/17 14:14 Chief complaint: CC: AMS for 3 days History of present illness: HO-CHUNK 89-year-old female from SNF presenting with chief complaint of altered mental status. Patient was sent from a detention for decreased responsiveness.[facility] reports that the patient has had decreasing responsiveness and decreased appetite over the past 2-3 days. Family initially refused to have the patient transported to the ED for evaluation yesterday. The patient grimaces and localizes to sternal rub but does not speak.Lying in bed semiresponsive. Past Medical History Hypertension CVA, Heart Attack/AMI Arthritis: Additional medical history: DNR. heart disease. hyperlipidemia. anxiety. dysphagia Surgical History Hx Pacemaker: Yes Hx Appendectomy: Yes Additional Surgical History: Craniotomy for brain tumor Family History Family history: no significant Social History Smoking Status: Never Smoker Substance Use Type: None Medications Home Medications: Home Medications Medication Instructions Recorded Confirmed Last Taken Type Aspirin EC [Aspirin Enteric Coated 81 mg PO QDAY #30 tablet 03/04/14 07/11/16 Rx TAB] ALPRAZolam [Xanax TAB] 0.5 mg PO QHS #30 tablet 06/08/16 07/11/16 Unknown Rx Calcium Carbonate [Calcium] 600 mg PO QDAY #30 tablet 06/08/16 07/11/16 Unknown Rx Hydrochlorothiazide [HCTZ] 12.5 mg PO DAILY #30 capsule 06/08/16 07/11/16 Unknown Rx Metoprolol [Lopressor TAB] 50 mg PO DAILY #30 tablet 06/08/16 07/11/16 Unknown Rx Pantoprazole [Protonix] 40 mg PO QDAY #30 tablet 06/08/16 07/11/16 Unknown Rx Potassium Chloride [Klor-Con 8] 10 meq PO DAILY #30 tablet 06/08/16 07/11/16 Unknown Rx QUEtiapine [SEROquel] 25 mg PO QDAY #30 tablet 06/08/16 07/11/16 Unknown Rx oxyCODONE /ACETAMINOPHEN [Percocet 1 tab PO Q6H PRN #30 tablet 06/08/16 Unknown Rx 5/325 mg] Review of Systems Stated complaint: NONRESPONSIVE Other details as noted in HPI Unobtainable due to pts medical conditions [place] notes reviewed Medications and Allergies Allergies Allergy/AdvReac Type Severity Reaction Status Date / Time phenytoin sodium Allergy Angioedema Verified 09/29/13 11:31 [From Dilantin] phenytoin sodium extended Allergy Angioedema Verified 09/29/13 11:31 [From Dilantin] Home Medications Medication Instructions Recorded Confirmed Last Taken Type Aspirin EC [Aspirin Enteric Coated 81 mg PO QDAY #30 tablet 03/04/14 07/11/16 Rx TAB] ALPRAZolam [Xanax TAB] 0.5 mg PO QHS #30 tablet 06/08/16 07/11/16 Unknown Rx Calcium Carbonate [Calcium] 600 mg PO QDAY #30 tablet 06/08/16 07/11/16 Unknown Rx Hydrochlorothiazide [HCTZ] 12.5 mg PO DAILY #30 capsule 06/08/16 07/11/16 Unknown Rx Metoprolol [Lopressor TAB] 50 mg PO DAILY #30 tablet 06/08/16 07/11/16 Unknown Rx Pantoprazole [Protonix] 40 mg PO QDAY #30 tablet 06/08/16 07/11/16 Unknown Rx Potassium Chloride [Klor-Con 8] 10 meq PO DAILY #30 tablet 06/08/16 07/11/16 Unknown Rx QUEtiapine [SEROquel] 25 mg PO QDAY #30 tablet 06/08/16 07/11/16 Unknown Rx oxyCODONE /ACETAMINOPHEN [Percocet 1 tab PO Q6H PRN #30 tablet 06/08/16 Unknown Rx 5/325 mg] Exam - Constitutional Vitals: Temp Pulse Resp BP Pulse Ox 99.1 F 117 H 22 168/90 94 01/12/17 20:11 01/12/17 20:08 01/12/17 20:08 01/12/17 20:08 01/12/17 20:08 General appearance: Present: no acute distress, well-nourished - EENT Eyes: Present: PERRL ENT: clear oral mucosa - Neck Neck: Present: supple, normal ROM - Respiratory Respiratory effort: normal Respiratory: bilateral: CTA - Cardiovascular Heart rate: 80 Rhythm: regular Heart Sounds: Present: S1 & S2. Absent: rub, click - Extremities Extremities: no ischemia, pulses intact, pulses symmetrical, No edema Peripheral Pulses: within normal limits - Abdominal General gastrointestinal: Present: soft, non-tender, non-distended, normal bowel sounds Female genitourinary: Present: normal - Rectal Rectal Exam: deferred - Integumentary Integumentary: Present: clear, warm, dry - Musculoskeletal Musculoskeletal: generalized weakness - Psychiatric Psychiatric: depressed, other (Lethargic Semi responsive) - Neurologic Neurologic: CNII-XII intact, moves all extremities Results - Labs CBC & Chem 7: 01/12/17 11:32 01/12/17 11:00 Labs: Laboratory Last Values WBC 12.1 K/mm3 (4.5-11.0) H 01/12/17 11:32 RBC 5.29 M/mm3 (3.65-5.03) H 01/12/17 11:32 Hgb 13.3 gm/dl (10.1-14.3) 01/12/17 11:32 Hct 42.2 % (30.3-42.9) 01/12/17 11:32 MCV 80 fl (79-97) 01/12/17 11:32 MCH 25 pg (28-32) L 01/12/17 11:32 MCHC 32 % (30-34) 01/12/17 11:32 RDW 18.1 % (13.2-15.2) H 01/12/17 11:32 Plt Count 223 K/mm3 (140-440) 01/12/17 11:32 Lymph % (Auto) 10.6 % (13.4-35.0) L 01/12/17 11:32 [place] % (Auto) 8.9 % (0.0-7.3) H 01/12/17 11:32 Eos % (Auto) 0.9 % (0.0-4.3) 01/12/17 11:32 Baso % (Auto) 0.4 % (0.0-1.8) 01/12/17 11:32 Lymph # 1.3 K/mm3 (1.2-5.4) 01/12/17 11:32 [place] # 1.1 K/mm3 (0.0-0.8) H 01/12/17 11:32 Eos # 0.1 K/mm3 (0.0-0.4) 01/12/17 11:32 Baso # 0.0 K/mm3 (0.0-0.1) 01/12/17 11:32 Seg Neutrophils % 79.2 % (40.0-70.0) H 01/12/17 11:32 Seg Neutrophils # 9.6 K/mm3 (1.8-7.7) H 01/12/17 11:32 PT 15.0 Sec. (12.2-14.9) H 01/12/17 11:00 INR 1.12 (0.87-1.13) 01/12/17 11:00 APTT 31.3 Sec. (24.2-36.6) 01/12/17 11:00 Sodium 145 mmol/L (137-145) 01/12/17 11:00 Potassium 4.2 mmol/L (3.6-5.0) 01/12/17 11:00 Chloride 104.4 mmol/L (98-107) 01/12/17 11:00 Carbon Dioxide 19 mmol/L (22-30) L 01/12/17 11:00 Anion Gap 26 mmol/L 01/12/17 11:00 BUN 34 mg/dL (7-17) H 01/12/17 11:00 Creatinine 1.2 mg/dL (0.7-1.2) 01/12/17 11:00 Estimated GFR 42 ml/min 01/12/17 11:00 BUN/Creatinine Ratio 28 % 01/12/17 11:00 Glucose 153 mg/dL (65-100) H 01/12/17 11:00 Calcium 9.3 mg/dL (8.4-10.2) 01/12/17 11:00 Total Bilirubin 0.90 mg/dL (0.1-1.2) 01/12/17 11:00 AST 32 units/L (5-40) 01/12/17 11:00 ALT 18 units/L (7-56) 01/12/17 11:00 Alkaline Phosphatase 111 units/L (35-129) 01/12/17 11:00 Ammonia 25.0 umol/L (25-60) 01/12/17 11:32 Total Creatine Kinase 73 units/L (30-135) 01/12/17 11:00 CK-MB (CK-2) 2.9 ng/mL (0.0-4.0) 01/12/17 11:00 CK-MB (CK-2) Rel Index 3.9 (0-4) 01/12/17 11:00 Troponin T 0.043 ng/mL (0.00-0.029) H 01/12/17 11:00 NT-Pro-B Natriuret Pep 6781 pg/mL (0-900) H 01/12/17 11:00 Total Protein 7.7 g/dL (6.3-8.2) 01/12/17 11:00 Albumin 3.5 g/dL (3.9-5) L 01/12/17 11:00 Albumin/Globulin Ratio 0.8 % 01/12/17 11:00 Triglycerides 177 mg/dL (2-149) H 01/12/17 11:00 Cholesterol 160 mg/dL (50-199) 01/12/17 11:00 LDL Cholesterol Direct 84 mg/dL (50-130) 01/12/17 11:00 HDL Cholesterol 41 mg/dL (40-59) 01/12/17 11:00 Cholesterol/HDL Ratio 3.90 % 01/12/17 11:00 TSH 1.700 mlU/mL (0.270-4.200) 01/12/17 11:00 Free T4 1.34 ng/dL (0.76-1.46) 01/12/17 11:00 Urine Color [place] (Yellow) 01/12/17 11:12 Urine Turbidity Clear (Clear) 01/12/17 11:12 Urine pH 5.0 (5.0-7.0) 01/12/17 11:12 Ur Specific [place] 1.017 (1.003-1.030) 01/12/17 11:12 Urine Protein 100 mg/dl mg/dL (Negative) 01/12/17 11:12 Urine Glucose (UA) Neg mg/dL (Negative) 01/12/17 11:12 Urine Ketones Neg mg/dL (Negative) 01/12/17 11:12 Urine Blood Sm (Negative) 01/12/17 11:12 Urine Nitrite Pos (Negative) 01/12/17 11:12 Urine Bilirubin Neg (Negative) 01/12/17 11:12 Urine Urobilinogen 2.0 mg/dL (<2.0) 01/12/17 11:12 Ur Leukocyte Esterase Mod (Negative) 01/12/17 11:12 Urine WBC (Auto) > 182.0 /HPF (0.0-6.0) H 01/12/17 11:12 Urine RBC (Auto) 32.0 /HPF (0.0-6.0) 01/12/17 11:12 U Epithel Cells (Auto) 11.0 /HPF (0-13.0) 01/12/17 11:12 Urine Bacteria (Auto) 4+ /HPF (Negative) 01/12/17 11:12 Urine Opiates Screen Presumptive negative 01/12/17 11:12 Urine Methadone Screen Presumptive negative 01/12/17 11:12 Ur Barbiturates Screen Presumptive negative 01/12/17 11:12 Ur Phencyclidine Scrn Presumptive negative 01/12/17 11:12 Ur Amphetamines Screen Presumptive negative 01/12/17 11:12 U Benzodiazepines Scrn Presumptive negative 01/12/17 11:12 Urine Cocaine Screen Presumptive negative 01/12/17 11:12 U Marijuana (THC) Screen Presumptive negative 01/12/17 11:12 Drugs of Abuse Note Disclamer 01/12/17 11:12 Plasma/Serum Alcohol < 0.01 gm% (0-0.07) 01/12/17 11:32 - Imaging and Cardiology EKG: report reviewed CT Scan - head: report reviewed (Large subacute infarcts in L MCA and R MCA territory) Assessment and Plan Advance Directives: Yes (DNR) VTE prophylaxis?: Chemical, Mechanical Plan of care discussed with patient/family: Yes - Patient Problems (1) Acute encephalopathy Current Visit: Yes Status: Acute Plan to address problem: Sec to massive stroke Poor Prognosis Family wants DNR and Hospice MRI/MRA cancelled (2) Acute CVA (cerebrovascular accident) Current Visit: Yes Status: Acute Plan to address problem: In Rt MCA territory Had Surgery rt cranial region.Family not able to elaborate. MRI/MRA cancelled, Signed DNR Comfort care Hospice suggested (3) HTN (hypertension) Current Visit: Yes Status: Chronic Qualifiers: Hypertension type: essential hypertension Qualified Code(s): I10 - Essential (primary) hypertension Plan to address problem: Catapress patch initiated/ Patient cannot swallow (4) Dementia Current Visit: No Status: Chronic Qualifiers: Alzheimer's disease onset: late-onset Dementia behavioral disturbance: with behavioral disturbance Plan to address problem: OnSeroquel.Patient has swallowing problems.Not agitated.Will Hold seroquel (5) Discharge planning issues Current Visit: No Status: Acute Plan to address problem: Hospice consult initiated (6) Advance care planning Current Visit: Yes Status: Acute Plan to address problem: Sigbed DNR and willing for Hospice (7) DVT prophylaxis Current Visit: No Status: Acute Plan to address problem: on Lovenox
[2017-01-12] MEDS ORDERED: SODIUM CHLORIDE FLUSH SYRINGE 10 ML IV PRN (21:47)
[2017-01-12] MEDS ORDERED: HCTZ PO SCH (22:00)
[2017-01-12] MEDS ORDERED: LOPRESSOR PO SCH (22:00)
[2017-01-12] MEDS ORDERED: NACL 0.9% 1000 ML 1,000 ML IV SCH (22:00)
[2017-01-12] MEDS ORDERED: PROTONIX PO SCH (22:00)
[2017-01-12] MEDS: HALFPRIN EC PO SCH (23:13)
[2017-01-13] MEDS: XANAX PO SCH (06:43)
[2017-01-13] MEDS ORDERED: CATAPRES-TTS PATCH TD SCH (10:00)
[2017-01-13] MEDS ORDERED: K-DUR PO SCH (10:00)
--- NOTE | 2017-01-13 13:34 | Progress Note ---
Assessment and Plan Assessment and plan: 89-year-old female from SNF presenting with chief complaint of altered mental status. Patient was sent from a [place] [facility] for decreased responsiveness.[facility] reports that the patient has had decreasing responsiveness and decreased appetite over the past 2-3 days. Family initially refused to have the patient transported to the ED for evaluation yesterday. The patient grimaces and localizes to sternal rub but does not speak. Lying in bed in position. After her family she had a major stroke about a week ago. And he understand that she is most likely not going to survive this. Past medical history include hypertension, CVA, coronary artery disease with history of [place], CHF status post AICD Sepsis/UTI Obtain urine cultures, continue antibiotics. Continue judicious IV fluids Acute hypoxic respiratory failure Continue supplemental oxygen Acute metabolic encephalopathy Patient recently had massive stroke, Family wants DO NOT RESUSCITATE and comfort care Recent massive CVA Patient is Comfort Care now, unable to tolerate oral medications for stroke prophylaxis, we'll focus on improving patient's comfort Hypertension BP meds on hold as patient unable to swallow at this time due to altered mental status Dementia Continue supportive care Case was discussed with the family at the bedside which included her oldest daughter has son and her granddaughter. The patient is now DO NOT RESUSCITATE, plan for hospice placement. We'll have hospice company, and speak to the family tomorrow morning. History Interval history: Patient has been having Osiel-Blankenship breathing. Nonresponsive, obtunded Review of systems Constitutional: No fevers, no malaise, no joint pains CVS: Continues to have tachycardia on and off GI: No vomiting Respiratory: No coughing, but having Osiel-Blankenship breathing Hospitalist Physical - Physical exam Narrative exam: General.: Appears chronically ill HEENT: Moist mucous membranes, extraocular muscles intact, no lymphadenopathy Neck: supple Cardiac: S1-S2 heard, tachycardic Lungs: Occasional rhonchi, no crackles or rales Abdomen: soft , nontender, nondistended, bowel sounds positive Extremities: no edema clubbing or cyanosis Skin: no rash or lesions Neurologic: Not responsive, having Osiel-Blankenship breathing - Constitutional Vitals: Temp Pulse Resp BP Pulse Ox 98.6 F 118 H 22 157/79 94 01/13/17 05:02 01/13/17 05:57 01/13/17 05:02 01/13/17 05:02 01/13/17 05:02 General appearance: Present: no acute distress, well-nourished Results - Labs CBC & Chem 7: 01/12/17 11:32 01/12/17 11:00 Labs: Laboratory Last Values WBC 12.1 K/mm3 (4.5-11.0) H 01/12/17 11:32 RBC 5.29 M/mm3 (3.65-5.03) H 01/12/17 11:32 Hgb 13.3 gm/dl (10.1-14.3) 01/12/17 11:32 Hct 42.2 % (30.3-42.9) 01/12/17 11:32 MCV 80 fl (79-97) 01/12/17 11:32 MCH 25 pg (28-32) L 01/12/17 11:32 MCHC 32 % (30-34) 01/12/17 11:32 RDW 18.1 % (13.2-15.2) H 01/12/17 11:32 Plt Count 223 K/mm3 (140-440) 01/12/17 11:32 Lymph % (Auto) 10.6 % (13.4-35.0) L 01/12/17 11:32 [place] % (Auto) 8.9 % (0.0-7.3) H 01/12/17 11:32 Eos % (Auto) 0.9 % (0.0-4.3) 01/12/17 11:32 Baso % (Auto) 0.4 % (0.0-1.8) 01/12/17 11:32 Lymph # 1.3 K/mm3 (1.2-5.4) 01/12/17 11:32 [place] # 1.1 K/mm3 (0.0-0.8) H 01/12/17 11:32 Eos # 0.1 K/mm3 (0.0-0.4) 01/12/17 11:32 Baso # 0.0 K/mm3 (0.0-0.1) 01/12/17 11:32 Seg Neutrophils % 79.2 % (40.0-70.0) H 01/12/17 11:32 Seg Neutrophils # 9.6 K/mm3 (1.8-7.7) H 01/12/17 11:32 PT 15.0 Sec. (12.2-14.9) H 01/12/17 11:00 INR 1.12 (0.87-1.13) 01/12/17 11:00 APTT 31.3 Sec. (24.2-36.6) 01/12/17 11:00 Sodium 145 mmol/L (137-145) 01/12/17 11:00 Potassium 4.2 mmol/L (3.6-5.0) 01/12/17 11:00 Chloride 104.4 mmol/L (98-107) 01/12/17 11:00 Carbon Dioxide 19 mmol/L (22-30) L 01/12/17 11:00 Anion Gap 26 mmol/L 01/12/17 11:00 BUN 34 mg/dL (7-17) H 01/12/17 11:00 Creatinine 1.2 mg/dL (0.7-1.2) 01/12/17 11:00 Estimated GFR 42 ml/min 01/12/17 11:00 BUN/Creatinine Ratio 28 % 01/12/17 11:00 Glucose 153 mg/dL (65-100) H 01/12/17 11:00 Calcium 9.3 mg/dL (8.4-10.2) 01/12/17 11:00 Total Bilirubin 0.90 mg/dL (0.1-1.2) 01/12/17 11:00 AST 32 units/L (5-40) 01/12/17 11:00 ALT 18 units/L (7-56) 01/12/17 11:00 Alkaline Phosphatase 111 units/L (35-129) 01/12/17 11:00 Ammonia 25.0 umol/L (25-60) 01/12/17 11:32 Total Creatine Kinase 73 units/L (30-135) 01/12/17 11:00 CK-MB (CK-2) 2.9 ng/mL (0.0-4.0) 01/12/17 11:00 CK-MB (CK-2) Rel Index 3.9 (0-4) 01/12/17 11:00 Troponin T 0.043 ng/mL (0.00-0.029) H 01/12/17 11:00 NT-Pro-B Natriuret Pep 6781 pg/mL (0-900) H 01/12/17 11:00 Total Protein 7.7 g/dL (6.3-8.2) 01/12/17 11:00 Albumin 3.5 g/dL (3.9-5) L 01/12/17 11:00 Albumin/Globulin Ratio 0.8 % 01/12/17 11:00 Triglycerides 177 mg/dL (2-149) H 01/12/17 11:00 Cholesterol 160 mg/dL (50-199) 01/12/17 11:00 LDL Cholesterol Direct 84 mg/dL (50-130) 01/12/17 11:00 HDL Cholesterol 41 mg/dL (40-59) 01/12/17 11:00 Cholesterol/HDL Ratio 3.90 % 01/12/17 11:00 TSH 1.700 mlU/mL (0.270-4.200) 01/12/17 11:00 Free T4 1.34 ng/dL (0.76-1.46) 01/12/17 11:00 Urine Color Yamini (Yellow) 01/12/17 11:12 Urine Turbidity Clear (Clear) 01/12/17 11:12 Urine pH 5.0 (5.0-7.0) 01/12/17 11:12 Ur Specific [place] 1.017 (1.003-1.030) 01/12/17 11:12 Urine Protein 100 mg/dl mg/dL (Negative) 01/12/17 11:12 Urine Glucose (UA) Neg mg/dL (Negative) 01/12/17 11:12 Urine Ketones Neg mg/dL (Negative) 01/12/17 11:12 Urine Blood Sm (Negative) 01/12/17 11:12 Urine Nitrite Pos (Negative) 01/12/17 11:12 Urine Bilirubin Neg (Negative) 01/12/17 11:12 Urine Urobilinogen 2.0 mg/dL (<2.0) 01/12/17 11:12 Ur Leukocyte Esterase Mod (Negative) 01/12/17 11:12 Urine WBC (Auto) > 182.0 /HPF (0.0-6.0) H 01/12/17 11:12 Urine RBC (Auto) 32.0 /HPF (0.0-6.0) 01/12/17 11:12 U Epithel Cells (Auto) 11.0 /HPF (0-13.0) 01/12/17 11:12 Urine Bacteria (Auto) 4+ /HPF (Negative) 01/12/17 11:12 Urine Opiates Screen Presumptive negative 01/12/17 11:12 Urine Methadone Screen Presumptive negative 01/12/17 11:12 Ur Barbiturates Screen Presumptive negative 01/12/17 11:12 Ur Phencyclidine Scrn Presumptive negative 01/12/17 11:12 Ur Amphetamines Screen Presumptive negative 01/12/17 11:12 U Benzodiazepines Scrn Presumptive negative 01/12/17 11:12 Urine Cocaine Screen Presumptive negative 01/12/17 11:12 U Marijuana (THC) Screen Presumptive negative 01/12/17 11:12 Drugs of Abuse Note Disclamer 01/12/17 11:12 Plasma/Serum Alcohol < 0.01 gm% (0-0.07) 01/12/17 11:32 - Imaging and Cardiology Chest x-ray: image reviewed (no infiltrates)
[2017-01-13] MEDS ORDERED: ROCEPHIN/NS 1 GM/50 ML 1 GM/50 ML BAG IV SCH (14:00)
[2017-01-13] MEDS ORDERED: LOPRESSOR IV PRN (18:52)
[2017-01-13] MEDS ORDERED: NACL 0.9% 1000 ML 1,000 ML IV SCH (19:00)
[2017-01-14] MEDS ORDERED: NACL 0.9% IV SCH (01:45)
[2017-01-14] MEDS ORDERED: ROCEPHIN IV SCH (01:45)
[2017-01-14] MEDS: XANAX PO SCH (06:35)
[2017-01-14] MEDS: HALFPRIN EC PO SCH (10:00)
[2017-01-14] MEDS ORDERED: CATAPRES-TTS PATCH TD SCH (12:00)
[2017-01-14 12:20] VITALS: BP 102/68
--- NOTE | 2017-01-14 12:42 | Discharge Summary ---
Providers - Providers Date of Admission: 01/12/17 14:14 Attending physician: MAGGIE DELGADO MD 01/12/17 21:47 Occupational Therapy Evaluate and Treat [CONS] Routine Comment: Reason For Exam: Neuro deficits Physical Therapy Evaluation and Treat [CONS] Routine Comment: Reason For Exam: Neuro deficits Primary care physician: CANDY CUTTER HAND Hospitalization Condition: Serious Hospital course: 89-year-old female from SNF presenting with chief complaint of altered mental status. [facility] from a [facility] for decreased responsiveness. long-term reports that the patient has had decreasing responsiveness and decreased appetite over the past 2-3 days. Family initially refused to have the patient transported to the ED for evaluation yesterday. The patient grimaces and localizes to sternal rub but does not speak. Lying in bed in position. As per her family she had a major stroke about a week ago. And he understand that she is most likely not going to survive much longer. She received supplemental oxygen Past medical history include hypertension, CVA, coronary artery disease with history of [place], CHF status post AICD she received antibiotics and supplemental oxygen, and her mentation did not improve. Her family decided to make her comfort care as she was comatose, and not improving. She was then transferred to hospice per her family's request Diagnosis Sepsis/UTI Acute hypoxic respiratory failure Acute metabolic encephalopathy Recent massive CVA Hypertension Dementia Disposition: [facility] ([facility]) Time spent for discharge: 33 minutes Core Measure Documentation - Palliative Care Palliative Care/ Comfort Measures: Hospice Care - Core Measures Any of the following diagnoses?: none Exam - Physical Exam Narrative exam: General.: Appears chronically ill HEENT: Moist mucous membranes, extraocular muscles intact, no lymphadenopathy Neck: supple Cardiac: S1-S2 heard, tachycardic Lungs: Occasional rhonchi, no crackles or rales Abdomen: soft , nontender, nondistended, bowel sounds positive Extremities: no edema clubbing or cyanosis Skin: no rash or lesions Neurologic: Not responsive, having Osiel-Blankenship breathing - Constitutional Vitals: Temp Pulse Resp BP Pulse Ox 97.5 F L 152 H 22 102/68 92 01/14/17 11:35 01/14/17 11:29 01/14/17 11:35 01/14/17 11:35 01/14/17 08:52 Plan Follow up with: [facility] [Provider Group] - 7 Days PRIMARY CARE, [Primary Care Provider] - 3-5 Days Prescriptions: ALPRAZolam [Xanax TAB] 0.5 mg PO QHS #30 tablet Morphine Concentrate [Roxanol Conc 20 MG/ML ORAL LIQ] 10 mg PO Q4HR PRN #7 oralsyr PRN Reason: Pain
--- NOTE | 2017-01-14 12:42 | Progress Note ---
Assessment and Plan Assessment and plan: 89-year-old female from SNF presenting with chief complaint of altered mental status. Patient was sent from a half-way for decreased responsiveness.[facility] reports that the patient has had decreasing responsiveness and decreased appetite over the past 2-3 days. Family initially refused to have the patient transported to the ED for evaluation yesterday. The patient grimaces and localizes to sternal rub but does not speak. Lying in bed in position. After her family she had a major stroke about a week ago. And he understand that she is most likely not going to survive this. Past medical history include hypertension, CVA, coronary artery disease with history of [place], CHF status post AICD Sepsis/UTI Obtain urine cultures, continue antibiotics. Continue judicious IV fluids Acute hypoxic respiratory failure Continue supplemental oxygen Acute metabolic encephalopathy Patient recently had massive stroke, Family wants DO NOT RESUSCITATE and comfort care Recent massive CVA Patient is Comfort Care now, unable to tolerate oral medications for stroke prophylaxis, we'll focus on improving patient's comfort Hypertension BP meds on hold as patient unable to swallow at this time due to altered mental status Dementia Continue supportive care Case was discussed with the family at the bedside which included her oldest daughter has son and her granddaughter. The patient is now DO NOT RESUSCITATE, plan for hospice placement. We'll have hospice company, and speak to the family tomorrow morning. Hospitalist Physical - Constitutional Vitals: Temp Pulse Resp BP Pulse Ox 97.5 F L 152 H 22 102/68 92 01/14/17 11:35 01/14/17 11:29 01/14/17 11:35 01/14/17 11:35 01/14/17 08:52 General appearance: Present: no acute distress, well-nourished Results - Labs CBC & Chem 7: 01/12/17 11:32 01/12/17 11:00 Labs: Laboratory Last Values WBC 12.1 K/mm3 (4.5-11.0) H 01/12/17 11:32 RBC 5.29 M/mm3 (3.65-5.03) H 01/12/17 11:32 Hgb 13.3 gm/dl (10.1-14.3) 01/12/17 11:32 Hct 42.2 % (30.3-42.9) 01/12/17 11:32 MCV 80 fl (79-97) 01/12/17 11:32 MCH 25 pg (28-32) L 01/12/17 11:32 MCHC 32 % (30-34) 01/12/17 11:32 RDW 18.1 % (13.2-15.2) H 01/12/17 11:32 Plt Count 223 K/mm3 (140-440) 01/12/17 11:32 Lymph % (Auto) 10.6 % (13.4-35.0) L 01/12/17 11:32 [place] % (Auto) 8.9 % (0.0-7.3) H 01/12/17 11:32 Eos % (Auto) 0.9 % (0.0-4.3) 01/12/17 11:32 Baso % (Auto) 0.4 % (0.0-1.8) 01/12/17 11:32 Lymph # 1.3 K/mm3 (1.2-5.4) 01/12/17 11:32 [place] # 1.1 K/mm3 (0.0-0.8) H 01/12/17 11:32 Eos # 0.1 K/mm3 (0.0-0.4) 01/12/17 11:32 Baso # 0.0 K/mm3 (0.0-0.1) 01/12/17 11:32 Seg Neutrophils % 79.2 % (40.0-70.0) H 01/12/17 11:32 Seg Neutrophils # 9.6 K/mm3 (1.8-7.7) H 01/12/17 11:32 PT 15.0 Sec. (12.2-14.9) H 01/12/17 11:00 INR 1.12 (0.87-1.13) 01/12/17 11:00 APTT 31.3 Sec. (24.2-36.6) 01/12/17 11:00 Sodium 145 mmol/L (137-145) 01/12/17 11:00 Potassium 4.2 mmol/L (3.6-5.0) 01/12/17 11:00 Chloride 104.4 mmol/L (98-107) 01/12/17 11:00 Carbon Dioxide 19 mmol/L (22-30) L 01/12/17 11:00 Anion Gap 26 mmol/L 01/12/17 11:00 BUN 34 mg/dL (7-17) H 01/12/17 11:00 Creatinine 1.2 mg/dL (0.7-1.2) 01/12/17 11:00 Estimated GFR 42 ml/min 01/12/17 11:00 BUN/Creatinine Ratio 28 % 01/12/17 11:00 Glucose 153 mg/dL (65-100) H 01/12/17 11:00 Calcium 9.3 mg/dL (8.4-10.2) 01/12/17 11:00 Total Bilirubin 0.90 mg/dL (0.1-1.2) 01/12/17 11:00 AST 32 units/L (5-40) 01/12/17 11:00 ALT 18 units/L (7-56) 01/12/17 11:00 Alkaline Phosphatase 111 units/L (35-129) 01/12/17 11:00 Ammonia 25.0 umol/L (25-60) 01/12/17 11:32 Total Creatine Kinase 73 units/L (30-135) 01/12/17 11:00 CK-MB (CK-2) 2.9 ng/mL (0.0-4.0) 01/12/17 11:00 CK-MB (CK-2) Rel Index 3.9 (0-4) 01/12/17 11:00 Troponin T 0.043 ng/mL (0.00-0.029) H 01/12/17 11:00 NT-Pro-B Natriuret Pep 6781 pg/mL (0-900) H 01/12/17 11:00 Total Protein 7.7 g/dL (6.3-8.2) 01/12/17 11:00 Albumin 3.5 g/dL (3.9-5) L 01/12/17 11:00 Albumin/Globulin Ratio 0.8 % 01/12/17 11:00 Triglycerides 177 mg/dL (2-149) H 01/12/17 11:00 Cholesterol 160 mg/dL (50-199) 01/12/17 11:00 LDL Cholesterol Direct 84 mg/dL (50-130) 01/12/17 11:00 HDL Cholesterol 41 mg/dL (40-59) 01/12/17 11:00 Cholesterol/HDL Ratio 3.90 % 01/12/17 11:00 TSH 1.700 mlU/mL (0.270-4.200) 01/12/17 11:00 Free T4 1.34 ng/dL (0.76-1.46) 01/12/17 11:00 Urine Color [place]amini (Yellow) 01/12/17 11:12 Urine Turbidity Clear (Clear) 01/12/17 11:12 Urine pH 5.0 (5.0-7.0) 01/12/17 11:12 Ur Specific [place] 1.017 (1.003-1.030) 01/12/17 11:12 Urine Protein 100 mg/dl mg/dL (Negative) 01/12/17 11:12 Urine Glucose (UA) Neg mg/dL (Negative) 01/12/17 11:12 Urine Ketones Neg mg/dL (Negative) 01/12/17 11:12 Urine Blood Sm (Negative) 01/12/17 11:12 Urine Nitrite Pos (Negative) 01/12/17 11:12 Urine Bilirubin Neg (Negative) 01/12/17 11:12 Urine Urobilinogen 2.0 mg/dL (<2.0) 01/12/17 11:12 Ur Leukocyte Esterase Mod (Negative) 01/12/17 11:12 Urine WBC (Auto) > 182.0 /HPF (0.0-6.0) H 01/12/17 11:12 Urine RBC (Auto) 32.0 /HPF (0.0-6.0) 01/12/17 11:12 U Epithel Cells (Auto) 11.0 /HPF (0-13.0) 01/12/17 11:12 Urine Bacteria (Auto) 4+ /HPF (Negative) 01/12/17 11:12 Urine Opiates Screen Presumptive negative 01/12/17 11:12 Urine Methadone Screen Presumptive negative 01/12/17 11:12 Ur Barbiturates Screen Presumptive negative 01/12/17 11:12 Ur Phencyclidine Scrn Presumptive negative 01/12/17 11:12 Ur Amphetamines Screen Presumptive negative 01/12/17 11:12 U Benzodiazepines Scrn Presumptive negative 01/12/17 11:12 Urine Cocaine Screen Presumptive negative 01/12/17 11:12 U Marijuana (THC) Screen Presumptive negative 01/12/17 11:12 Drugs of Abuse Note Disclamer 01/12/17 11:12 Plasma/Serum Alcohol < 0.01 gm% (0-0.07) 01/12/17 11:32
[2017-01-15] MEDS ORDERED: cefTRIAXone 1 GM in NACL 0.9% 20 ML IV SCH (10:00)
== END 2017-01-14 16:30 | disposition hospice, inpatient (51) | DRG 871 ==
LOC: ED 10:45 → 4A 14:14
PROVIDERS: ADMIT Internal Medicine; ATTEND Internal Medicine
DX: A41.9 Sepsis, unspecified organism (principal); J96.01 Acute respiratory failure with hypoxia; G93.41 Metabolic encephalopathy; N39.0 Urinary tract infection, site not specified; M19.90 Unspecified osteoarthritis, unspecified site; F03.90 Unspecified dementia, unspecified severity, without behavioral disturbance, psychotic disturbance, mood disturbance, and anxiety; E78.5 Hyperlipidemia, unspecified; F41.9 Anxiety disorder, unspecified; R13.10 Dysphagia, unspecified; Z66 Do not resuscitate; Z51.5 Encounter for palliative care; I25.10 Atherosclerotic heart disease of native coronary artery without angina pectoris; I50.9 Heart failure, unspecified; I11.0 Hypertensive heart disease with heart failure; I25.2 Old myocardial infarction; Z95.810 Presence of automatic (implantable) cardiac defibrillator; Z90.49 Acquired absence of other specified parts of digestive tract; I69.30 Unspecified sequelae of cerebral infarction
CPT/HCPCS: 36415; 70450; 71010; 80053; 80061; 80307; 80320; 81001; 82140; 82550; 82553; 83880; 84439; 84443; 84484; 85025; 85610; 85730; 87040; 87086; 93005; 93010; 93306; 96365; 96375; G0480; J0696; J1956; J2310; J7030